=== PATIENT | male | born 1955 | race Caucasian/White ===

== ENCOUNTER 2023-01-17 09:01 | Inpatient (IN) | payer OTHER, MEDICAID ==
[~2023-01-17] VITALS: Ht 175.3 cm; Wt 99.2 kg
[~2023-01-17 09:01] MED LIST: ASPI-394 PO; ATOR20TA PO; DIGO0.1262 PO; DILT120C64 PO; MAGN250T8 PO; METO25TA5 PO; MULTTAB99 PO; TAMS0.4C36 PO; WARF1TAB PO; ZOLP10TA PO
[2023-01-17] MEDS ORDERED: ASPirin 81 mg TAB PO ONE (09:30)
[2023-01-17] MEDS ORDERED: MORPHINE SULFATE 4 MG/ML SYR/VIAL IV ONE (09:30)
[2023-01-17] MEDS ORDERED: ONDANSETRON HCL 4 MG/2 ML VIAL IV ONE (09:30)
[2023-01-17 09:38] LABS: Basophils # (auto) 0.1 10 ^3/uL (0-0.2); Basophils % (auto) 0.5 % (0.0-2.0); Eosinophils # (auto) 0.2 10 ^3/uL (0-0.8); Eosinophils % (auto) 2.3 % (0.0-7.0); Hematocrit 43.4 % (41.0-53.0); Hemoglobin 14.5 g/dL (13.5-17.5); Lymphocytes # (auto) 2.1 10 ^3/uL (0.4-5.4); Lymphocytes % (auto) 19.9 % (10.0-50.0); Mean Corpuscular Hemoglobin 32.2 pg (28.0-32.0); Mean Corpuscular Hgb Conc. 33.4 g/dL (32.0-36.0); Mean Corpuscular Volume 96.4 fL (80.0-100.0); Monocytes # (auto) 0.9 10 ^3/uL (0-1.3); Monocytes % (auto) 8.6 % (0.0-12.0); Neutrophils # (auto) 7.3 10 ^3/uL (1.6-8.6); Neutrophils % (auto) 68.7 % (37.0-80.0); Nucleated Red Blood Cells % 0.1 %; Red Cell Distribution Width 14.7 % (11.8-14.3); White Blood Cell 10.6 10^3/uL (4.4-10.8)
[2023-01-17 09:52] LABS: INR 1.06 (0.9-1.15); Partial Thromboplastin Time 29.4 SEC (24.5-34.5); Prothrombin Time 11.1 sec (9.3-11.8)
[2023-01-17 09:59] LABS: Alanine Aminotransferase 21 U/L (7-40); Albumin 4.4 g/dL (3.2-4.8); Alkaline Phosphatase 67 U/L (46-116); Anion Gap 6 (5-15); Aspartate Aminotransferase 20 U/L (13-40); BUN/Creatinine Ratio 27.3 (10.0-20.0); Blood Urea Nitrogen 24 mg/dL (9-23); Calcium 9.7 mg/dL (8.5-10.1); Carbon Dioxide 30 mmol/L (20-30); Chloride 103 mmol/L (98-107); Glucose 113 mg/dL (74-106); Potassium 3.8 mmol/L (3.5-5.1); Sodium 139 mmol/L (136-145); Total Protein 6.4 g/dL (5.7-8.2)
[2023-01-17 10:16] VITALS: PULSE 82; RESP 15; O2SAT 95
[2023-01-17] MEDS ORDERED: NITROGLYCERIN 0.4 MG SL TAB SL PRN (12:45)
[2023-01-17] MEDS ORDERED: ONDANSETRON HCL 4 MG/2 ML VIAL IV PRN (12:45)
[2023-01-17] MEDS ORDERED: DOCUSATE SOD 100 MG CAP PO PRN (12:45)
[2023-01-17] MEDS ORDERED: MORPHINE SULFATE INJ 2 MG/ml SYRG IV PRN (12:45)
[2023-01-17 13:20] LABS: Magnesium 1.8 mg/dL (1.6-2.6)
[2023-01-17] MEDS ORDERED: NITR0.4S29 SL (13:25)
[2023-01-17] MEDS ORDERED: FURO40TA4 PO (13:25)
[2023-01-17] MEDS ORDERED: FINA5TAB4 PO (13:25)
[2023-01-17] MEDS ORDERED: APIX5TAB PO (13:25)
[2023-01-17] MEDS ORDERED: ALBU2TAB11 PO (13:25)
[2023-01-17] MEDS ORDERED: CLON0.1T PO (13:25)
[2023-01-17] MEDS ORDERED: LISI40TA16 PO (13:25)
[2023-01-17] MEDS ORDERED: ALL100T PO (13:25)
[2023-01-17] MEDS ORDERED: PANT40TA2 PO (13:25)
[2023-01-17] MEDS ORDERED: cloNIDine HCL 0.1 MG TAB PO SCH (14:45)
[2023-01-17] MEDS ORDERED: NITROGLYCERIN 0.4 MG SL TAB SL SCH (14:45)
[2023-01-17] MEDS: MORPHINE SULFATE INJ 2 MG/ml SYRG IV PRN ×2 (14:50→22:22)
[2023-01-17 15:33] VITALS: BP 135/92; PULSE 82; RESP 16; TEMP 97.6; O2SAT 95
[2023-01-17 19:35] VITALS: O2SAT 96
[2023-01-17 20:13] LABS: Urine Bacteria NONE SEEN /hpf (None Seen); Urine Blood Negative /uL (Negative); Urine Clarity Clear (Clear); Urine Color Yellow (Yellow); Urine Protein, UAD Negative (Negative); Urine Specific Gravity 1.019 (1.001-1.035); Urine Urobilinogen Normal (Negative); Urine WBC 1 /hpf (0 - 3); Urine pH 5.5 (5.0-8.0)
[2023-01-17 22:00] VITALS: BP 130/90; PULSE 95; RESP 18; TEMP 97.6; O2SAT 96
[2023-01-17] MEDS: APIXABAN 5 MG TAB PO SCH (22:21)
[2023-01-17 22:41] VITALS: PULSE 95; RESP 18; O2SAT 95
[2023-01-17] MEDS: METOPROLOL TARTRATE 25 MG TAB PO SCH (23:18)
[2023-01-18] VITALS (12 sets, daily range): BP systolic 135–157; BP diastolic 88–100; PULSE 67–111; RESP 16–19; TEMP 97.5–98; O2SAT 90–100
[2023-01-18] MEDS: HYDROcodone-ACET 5/325MG TAB PO PRN ×4 (00:19→18:45)
[2023-01-18] MEDS: ALBUTEROL SULF 2.5 MG/0.5ML(0.5%) NEB SOLN NEB PRN ×2 (00:25→18:02)
[2023-01-18] MEDS: IPRATROPIUM BROM 0.5 MG/2.5ML INH SOL NEB PRN ×2 (00:26→18:02)
[2023-01-18] MEDS: MORPHINE SULFATE INJ 2 MG/ml SYRG IV PRN ×5 (02:43→21:26)
[2023-01-18 05:53] LABS: Basophils # (auto) 0.1 10 ^3/uL (0-0.2); Basophils % (auto) 0.8 % (0.0-2.0); Eosinophils # (auto) 0.2 10 ^3/uL (0-0.8); Eosinophils % (auto) 2.7 % (0.0-7.0); Hematocrit 39.7 % (41.0-53.0); Hemoglobin 13.3 g/dL (13.5-17.5); Lymphocytes # (auto) 1.5 10 ^3/uL (0.4-5.4); Lymphocytes % (auto) 19.8 % (10.0-50.0); Mean Corpuscular Hemoglobin 32.6 pg (28.0-32.0); Mean Corpuscular Hgb Conc. 33.6 g/dL (32.0-36.0); Mean Corpuscular Volume 96.9 fL (80.0-100.0); Monocytes # (auto) 0.6 10 ^3/uL (0-1.3); Monocytes % (auto) 8.5 % (0.0-12.0); Neutrophils % (auto) 68.2 % (37.0-80.0); Nucleated Red Blood Cells % 0.1 %; Red Blood Cells 4.09 10^6/uL (4.5-5.90); Red Cell Distribution Width 14.6 % (11.8-14.3); White Blood Cell 7.3 10^3/uL (4.4-10.8)
[2023-01-18 06:07] LABS: Alanine Aminotransferase 17 U/L (7-40); Alkaline Phosphatase 57 U/L (46-116); Anion Gap 5 (5-15); Aspartate Aminotransferase 19 U/L (13-40); BUN/Creatinine Ratio 16.1 (10.0-20.0); Bilirubin, Total 0.9 mg/dL (0.2-1.0); Blood Urea Nitrogen 14 mg/dL (9-23); Calcium 9.2 mg/dL (8.5-10.1); Carbon Dioxide 31 mmol/L (20-30); Chloride 104 mmol/L (98-107); Cholesterol 134 mg/dL (< 200); Glucose 100 mg/dL (74-106); HDL Cholesterol 28 mg/dL (40-59); LDL Cholesterol 64 mg/dL (< 100); Potassium 3.8 mmol/L (3.5-5.1); Sodium 140 mmol/L (136-145); Total Protein 6.1 g/dL (5.7-8.2); Triglycerides 288 mg/dL (< 150)
[2023-01-18] MEDS: METOPROLOL TARTRATE 25 MG TAB PO SCH ×2 (09:20→22:30)
[2023-01-18] MEDS: DIGOXIN 0.125 MG TAB PO SCH (09:20)
[2023-01-18] MEDS: PANTOPRAZOLE 40 MG TAB PO SCH (09:22)
[2023-01-18] MEDS: FINASTERIDE 5 MG TAB PO SCH (09:23)
[2023-01-18] MEDS: ATORVASTATIN 20 MG TAB PO SCH (09:23)
[2023-01-18] MEDS: ALLOPURINOL 100 MG TAB PO SCH (09:23)
[2023-01-18] MEDS: APIXABAN 5 MG TAB PO SCH ×2 (09:23→22:30)
[2023-01-18] MEDS ORDERED: PATIENTS OWN MEDICATION (Lisinopril 40 MG) PO SCH (10:00)
[2023-01-18] MEDS ORDERED: ADENOSINE 85 MG in GIVE UN-DILUTED 0 ML IV ONE (10:15)
[2023-01-18] MEDS ORDERED: PRED10TA PO (11:27)
[2023-01-18] MEDS ORDERED: AMLO1TAB22 PO ×2 (11:27→17:05)
[2023-01-18] MEDS ORDERED: SERT-206 PO (11:27)
[2023-01-18] MEDS: FUROSEMIDE 40 MG TAB PO SCH (12:41)
[2023-01-18] MEDS ORDERED: DIGO125T11 PO (17:05)
[2023-01-18] MEDS ORDERED: ASCO500T11 PO (17:05)
[2023-01-18] MEDS ORDERED: CLON0.1T PO (17:05)
[2023-01-18] MEDS ORDERED: ALLO100T PO (17:05)
[2023-01-18] MEDS ORDERED: APIX5TAB PO (17:05)
[2023-01-18] MEDS ORDERED: NITR0.4S29 SL (17:05)
[2023-01-18] MEDS ORDERED: DIPH25CA66 PO (17:05)
[2023-01-18] MEDS ORDERED: ASPI-543 PO (17:05)
[2023-01-18] MEDS ORDERED: SERT-375 PO (17:05)
[2023-01-18] MEDS ORDERED: ACET-6 PO (17:05)
[2023-01-18] MEDS ORDERED: MULT-1018 PO (17:05)
[2023-01-18] MEDS ORDERED: PANT40TA2 PO (17:05)
[2023-01-18] MEDS ORDERED: ATOR20TA50 PO (17:05)
[2023-01-18] MEDS ORDERED: LISI40TA16 PO (17:05)
[2023-01-18] MEDS ORDERED: FINA5TAB4 PO (17:05)
[2023-01-18] MEDS ORDERED: FURO40TA4 PO (17:05)
[2023-01-18] MEDS ORDERED: METO-158 PO (17:05)
[2023-01-19] VITALS (22 sets, daily range): BP systolic 123–155; BP diastolic 63–100; PULSE 84–115; RESP 16–22; TEMP 97.6–98.6; O2SAT 93–100
[2023-01-19] MEDS: IPRATROPIUM BROM 0.5 MG/2.5ML INH SOL NEB PRN ×5 (00:32→20:32)
[2023-01-19] MEDS: ALBUTEROL SULF 2.5 MG/0.5ML(0.5%) NEB SOLN NEB PRN ×5 (00:32→20:32)
[2023-01-19] MEDS: MORPHINE SULFATE INJ 2 MG/ml SYRG IV PRN ×4 (02:33→20:30)
[2023-01-19] MEDS ORDERED: ASPirin 81 mg TAB PO ONE (10:30)
[2023-01-19] MEDS: ATORVASTATIN 20 MG TAB PO SCH (10:57)
[2023-01-19] MEDS: ALLOPURINOL 100 MG TAB PO SCH (10:58)
[2023-01-19] MEDS: ACETAMINOPHEN 325 MG TAB PO PRN (10:58)
[2023-01-19] MEDS: APIXABAN 5 MG TAB PO SCH ×2 (10:58→21:53)
[2023-01-19] MEDS: FINASTERIDE 5 MG TAB PO SCH (10:59)
[2023-01-19] MEDS: METOPROLOL TARTRATE 25 MG TAB PO SCH ×2 (10:59→21:53)
[2023-01-19] MEDS: PANTOPRAZOLE 40 MG TAB PO SCH (10:59)
[2023-01-19] MEDS: LISINOPRIL 20 MG TAB PO SCH (11:00)
[2023-01-19] MEDS: FUROSEMIDE 40 MG TAB PO SCH (11:00)
[2023-01-19] MEDS: DIGOXIN 0.125 MG TAB PO SCH (11:01)
[2023-01-19] MEDS: HYDROcodone-ACET 5/325MG TAB PO PRN (13:15)
[2023-01-20] VITALS (24 sets, daily range): BP systolic 114–187; BP diastolic 61–140; PULSE 81–135; RESP 12–100; TEMP 97.2–98.1; O2SAT 90–100
[2023-01-20] MEDS: MORPHINE SULFATE INJ 2 MG/ml SYRG IV PRN ×2 (00:58→06:08)
[2023-01-20] MEDS: IPRATROPIUM BROM 0.5 MG/2.5ML INH SOL NEB PRN ×2 (03:17→11:40)
[2023-01-20] MEDS: ALBUTEROL SULF 2.5 MG/0.5ML(0.5%) NEB SOLN NEB PRN ×2 (03:17→11:40)
[2023-01-20 06:18] LABS: Basophils # (auto) 0.1 10 ^3/uL (0-0.2); Basophils % (auto) 0.7 % (0.0-2.0); Eosinophils # (auto) 0.2 10 ^3/uL (0-0.8); Eosinophils % (auto) 2.4 % (0.0-7.0); Hematocrit 44.8 % (41.0-53.0); Hemoglobin 14.6 g/dL (13.5-17.5); Lymphocytes # (auto) 1.3 10 ^3/uL (0.4-5.4); Lymphocytes % (auto) 16.3 % (10.0-50.0); Mean Corpuscular Hemoglobin 31.8 pg (28.0-32.0); Mean Corpuscular Hgb Conc. 32.7 g/dL (32.0-36.0); Mean Corpuscular Volume 97.2 fL (80.0-100.0); Monocytes # (auto) 0.8 10 ^3/uL (0-1.3); Monocytes % (auto) 9.4 % (0.0-12.0); Neutrophils # (auto) 5.8 10 ^3/uL (1.6-8.6); Neutrophils % (auto) 71.2 % (37.0-80.0); Red Cell Distribution Width 14.6 % (11.8-14.3); White Blood Cell 8.1 10^3/uL (4.4-10.8)
[2023-01-20 06:23] LABS: INR 1.05 (0.9-1.15); Partial Thromboplastin Time 31.3 SEC (24.5-34.5)
[2023-01-20 06:26] LABS: Alanine Aminotransferase 20 U/L (7-40); Albumin 4.5 g/dL (3.2-4.8); Alkaline Phosphatase 75 U/L (46-116); Anion Gap 4 (5-15); Aspartate Aminotransferase 23 U/L (13-40); BUN/Creatinine Ratio 12.2 (10.0-20.0); Blood Urea Nitrogen 10 mg/dL (9-23); Calcium 9.6 mg/dL (8.7-10.4); Carbon Dioxide 30 mmol/L (20-30); Chloride 106 mmol/L (98-107); Glucose 123 mg/dL (74-106); Potassium 3.6 mmol/L (3.5-5.1); Sodium 140 mmol/L (136-145)
[2023-01-20 06:27] LABS: Bilirubin, Total 0.8 mg/dL (0.2-1.0); Total Protein 6.8 g/dL (5.7-8.2)
[2023-01-20] MEDS ORDERED: IODIXANOL 320MG/ML 100ML BTL IV ONE ×2 (07:55→08:14)
[2023-01-20] MEDS ORDERED: LIDOCAINE 2%HCL (LOCAL ANESTH.) INJ 20ML MDV ONE (07:55)
[2023-01-20] MEDS ORDERED: HEPARIN SODIUM (PORCINE) 5000 UNITS/ML 1ML VIAL ONE (08:13)
[2023-01-20] MEDS ORDERED: VERAPAMIL 2.5MG/ML INJ 2ML VIAL IV ONE (08:13)
[2023-01-20] MEDS ORDERED: ANGIOMAX 250 MG VIAL IV ONE (08:13)
[2023-01-20] MEDS ORDERED: fentaNYL CITRATE 100 MCG/2 ML VL ONE (08:14)
[2023-01-20] MEDS ORDERED: MIDAZOLAM HCL 2MG/2ML 2ml VIAL (1mg/ml) ONE (08:14)
[2023-01-20] MEDS ORDERED: SODIUM CHL 0.9% 0 ML ONE (08:14)
[2023-01-20] MEDS ORDERED: METOPROLOL TARTRATE 1MG/1ML-5ML VIAL IV ONE (08:51)
[2023-01-20] MEDS ORDERED: LABETALOL HCL 5 MG/ML ML 20ML VIAL IV ONE (08:58)
[2023-01-20] MEDS ORDERED: ASPirin 81 mg TAB PO SCH (10:00)
[2023-01-20] MEDS ORDERED: LABETALOL HCL 5 MG/ML 4ML SYRINGE IV PRN (10:00)
[2023-01-20] MEDS ORDERED: LABETALOL HCL 5 MG/ML 4ML SYRINGE IV ONE (10:05)
[2023-01-20] MEDS: ACETAMINOPHEN 325 MG TAB PO PRN (10:44)
[2023-01-20] MEDS: ATORVASTATIN 20 MG TAB PO SCH (10:45)
[2023-01-20] MEDS: HYDROcodone-ACET 5/325MG TAB PO PRN (10:45)
[2023-01-20] MEDS: APIXABAN 5 MG TAB PO SCH (10:45)
[2023-01-20] MEDS: FINASTERIDE 5 MG TAB PO SCH (10:45)
[2023-01-20] MEDS: PANTOPRAZOLE 40 MG TAB PO SCH (10:45)
[2023-01-20] MEDS: ALLOPURINOL 100 MG TAB PO SCH (10:46)
[2023-01-20] MEDS: FUROSEMIDE 40 MG TAB PO SCH (10:46)
[2023-01-20] MEDS: LISINOPRIL 20 MG TAB PO SCH (10:47)
[2023-01-20] MEDS ORDERED: MULT-1018 PO (11:33)
[2023-01-20] MEDS ORDERED: HYDR-4798 PO (11:36)
== END 2023-01-20 15:36 | disposition home or self-care (01) | DRG 286 ==
LOC: ER 09:01 → TELE 12:44 → TELE-WESTW 21:58
PROVIDERS: ADMIT Nurse Practitioner Family; ATTEND Internal Medicine Geriatric Medicine
PROC: 4A023N7 Measurement of Cardiac Sampling and Pressure, Left Heart, Percutaneous Approach (ICD-10-PCS; principal; 2023-01-20)
PROC: B211YZZ Fluoroscopy of Multiple Coronary Arteries using Other Contrast (ICD-10-PCS; 2023-01-20)
PROC: B215YZZ Fluoroscopy of Left Heart using Other Contrast (ICD-10-PCS; 2023-01-20)
DX: I11.0 Hypertensive heart disease with heart failure (principal); I50.31 Acute diastolic (congestive) heart failure; I24.9 Acute ischemic heart disease, unspecified; J90 Pleural effusion, not elsewhere classified; R07.89 Other chest pain; M79.18 Myalgia, other site; I48.91 Unspecified atrial fibrillation; E66.9 Obesity, unspecified; K21.9 Gastro-esophageal reflux disease without esophagitis; M10.9 Gout, unspecified; F17.210 Nicotine dependence, cigarettes, uncomplicated; J43.9 Emphysema, unspecified; E78.2 Mixed hyperlipidemia; Z79.899 Other long term (current) drug therapy; Z79.01 Long term (current) use of anticoagulants; Z68.32 Body mass index [BMI] 32.0-32.9, adult; Z82.49 Family history of ischemic heart disease and other diseases of the circulatory system; Z82.3 Family history of stroke; I16.0 Hypertensive urgency
CPT/HCPCS: 36415; 71045; 78452; 80053; 80061; 80162; 81001; 83036; 83735; 83880; 84443; 84484; 85025; 85379; 85610; 85730; 86850; 86900; 86901; 87081; 93005; 93017; 93306; 93458; 94640; 96374; 96375; 96376; 99152; 99153; G0378; J0153; J2250; J2405; J3490; Q9967

== ENCOUNTER 2023-01-26 07:27 | Emergency (ER) | payer OTHER, MEDICAID ==
[~2023-01-26] VITALS: Ht 175.3 cm; Wt 101.8 kg
[~2023-01-26 07:27] MED LIST changes: +ACET-6 PO; +ALLO100T PO; +AMLO1TAB22 PO; +APIX5TAB PO; +ASCO500T11 PO; -ASPI-394 PO; +ASPI-543 PO; -ATOR20TA PO; +ATOR20TA50 PO; +CLON0.1T PO; -DIGO0.1262 PO; +DIGO125T11 PO; -DILT120C64 PO; +DIPH25CA66 PO; +FINA5TAB4 PO; +FURO40TA4 PO; +HYDR-4798 PO; +LISI40TA16 PO; -MAGN250T8 PO; +METO-158 PO; -METO25TA5 PO; +MULT-1018 PO; -MULTTAB99 PO; +NITR0.4S29 SL; +PANT40TA2 PO; +SERT-375 PO; -TAMS0.4C36 PO; -WARF1TAB PO; -ZOLP10TA PO
[2023-01-26 09:10] VITALS: TEMP 98.1
[2023-01-26 09:12] VITALS: PULSE 49; RESP 14; O2SAT 92
[2023-01-26 11:54] VITALS: BP 97/42; PULSE 54; RESP 14; O2SAT 93
== END 2023-01-26 12:55 | disposition home or self-care (01) ==
LOC: ER 07:27
DX: T46.5X1A Poisoning by other antihypertensive drugs, accidental (unintentional), initial encounter (principal); R42 Dizziness and giddiness; J44.9 Chronic obstructive pulmonary disease, unspecified; E78.5 Hyperlipidemia, unspecified; I10 Essential (primary) hypertension; F17.210 Nicotine dependence, cigarettes, uncomplicated; I48.91 Unspecified atrial fibrillation; F12.10 Cannabis abuse, uncomplicated; Y92.89 Other specified places as the place of occurrence of the external cause
CPT/HCPCS: 93005; 99291

== ENCOUNTER 2024-08-24 19:21 | Inpatient (IN) | payer OTHER, MEDICAID ==
[~2024-08-24] VITALS: Ht 175.3 cm; Wt 97.1 kg
--- NOTE | 2024-08-24 20:10 | ED.PDOC ---
History of Present Illness HPI Comments 68-year-old male who came to ER for low blood pressure. History of hypertension, COPD and AFib, status post pacemaker insertion. States about 4:30 p.m., noted that he was feeling dizzy and lightheaded, noted that his blood pressure was low (78/40 mmHg). Denies any acute chest pains or shortness of breath. Patient admits to have taken shot of vodka, and marijuana gummies earlier. Upon arrival in the ER blood pressure was 88/54 mm Hg Chief Complaint: Low Blood Pressure Time Seen by MD: 20:10 Primary Care Provider: JHONATAN Reviewed Notes: Nurses Notes Allergies: Coded Allergies: NO KNOWN ALLERGIES (Unverified , 11/27/12) Home Meds Active Scripts Hydrocodone-Acetaminophen (Hydrocodone Bitartrate/AC 10-325 mg) 1 Tab Tab, 1 TAB PO Q6HP PRN, #20 TAB Prov:NICOLLE PANDA MD 01/20/23 Multiple Vitamin (Multivitamins) Tab, 1 TAB PO DAILY, #30 TAB 5 Refills Prov:NICOLLE PANDA MD 01/20/23 Reported Medications Efltxbwdzli-Vgvkkqgojpsi-Aklih (Trelegy Ellipta 200-62.5-25 Mcg/INH) 1 Aer Aer, 1 AER IN DAILY, AER 08/25/24 Prednisone (Prednisone) 5 Mg Tab, 5 MG PO DAILY, TAB 08/25/24 Lisinopril (Lisinopril) 20 Mg Tab, 20 MG PO DAILY for 30 Days, MG 08/25/24 Hydralazine Hcl (Hydralazine Hcl) 25 Mg Tab, 25 MG PO for 30 Days, MG 08/25/24 Apixaban Base (ELIQUIS) 5 Mg Tab, 5 MG PO BID, TAB 08/25/24 Albuterol Sulfate (Albuterol Sulfate) 2 Mg Tab, 90 MCG IN Q6HP PRN for SHORTNESS OF BREATH, MG 08/25/24 Acetaminophen (Acetaminophen Extra Stren) 500 Mg Tab, 500 MG PO QIDPRN, TAB 01/18/23 Ascorbic Acid (VITAMIN C TABLET) 500 Mg Tb, 2 TAB PO BID, #60 TAB 01/18/23 Diphenhydramine Hcl (Benadryl Allergy) 25 Mg Cap, 25 MG PO DAILY, CAP 01/18/23 Furosemide (Furosemide) 40 Mg Tab, 40 MG PO DAILY 01/18/23 Sertraline HCl (Sertraline Hydrochloride) 25 Mg Tab, 25 MG PO DAILY, TAB 01/18/23 Pantoprazole Sodium Sesquihydr (Protonix) 40 Mg Tab, 40 MG PO DAILY, #30 TAB 01/18/23 Nitroglycerin (NTROSTAT SUBLINGUAL) 0.4 Mg Sl, 0.4 MG SL PRN, TAB *MAY REPEAT EVERY 5 MINUTES X 3 TOTAL IF NO RELIEF, INITIATE ANALGESIC THERAPY. NOTIFY PHYSICIAN *Do not crush. 01/18/23 Metoprolol Tartrate (Metoprolol Tartrate) 50 Mg Tab, 50 MG PO BID, TAB 01/18/23 Lisinopril (Lisinopril) 40 Mg Tab, 40 MG PO DAILY for 30 Days, MG 01/18/23 Finasteride (Finasteride) 5 Mg Tab, 5 MG PO DAILY, MG 01/18/23 Digoxin (Digox) 125 Mcg Tab, 125 MCG PO DAILY, TAB 01/18/23 Clonidine Hydrochloride (Clonidine Hcl) 0.1 Mg Tab, 0.1 MG PO TID, TAB 01/18/23 Atorvastatin Calcium (ATORVASTATIN CALCIUM) 20 Mg Tab, 1 TAB PO DAILY, #30 TAB 5 Refills 01/18/23 Aspirin (Aspir-Low) 81 Mg Tab, 81 MG PO DAILYPRN, MG 01/18/23 Apixaban Base (ELIQUIS) 5 Mg Tab, 5 MG PO BID, TAB 01/18/23 Amlodipine Besylate (Amlodipine Besylate) 5 Mg Tab, 5 MG PO DAILY, MG 01/18/23 Allopurinol (Allopurinol) 100 Mg Tab, 100 MG PO DAILY, TAB 01/18/23 Information Source: Patient Mode of Arrival: Ambulatory Severity: Moderate Timing: Hours Duration: Since onset Review of Systems REVIEW OF SYSTEMS: No fever, no chills, or fatigue HEENT: No sore throat, no earache, no congestion, no neck pain. Cardiac: No chest pain. No palpitations. Lungs: No shortness of breath, no cough. GI: No nausea, no vomiting, no diarrhea, no constipation, no abdominal pain : No dysuria, frequency, or urgency. No hematuria. Musculoskeletal: No joint pain , no joint swelling, no extremity edema. Skin: No rash, no itching. Neuro: No headache, (+) dizziness, no weakness Vital Signs Vital Signs Date Time Temp Pulse Resp B/P (MAP) Pulse Ox O2 Delivery O2 Flow Rate FiO2 08/24/24 23:07 97.3 63 18 70/45 (53) 96 97.3 08/24/24 23:00 Room Air* 0 21 Physical Exam General: Awake, alert and oriented. No acute distress. Skin: Skin in warm, dry and intact. Appropriate color for ethnicity. Nailbeds pink with no cyanosis. HEENT: The head is normocephalic and atraumatic. Conjunctivae are clear without exudates or hemorrhage. Sclera is non-icteric. EOM are intact. No signs of nystagmus. Eyelids are normal in appearance without swelling or lesions. Oral mucosa is pink and moist Neck: The neck is supple with normal range of motion. No JVD. Cardiac: Heart rate and rhythm are normal. No murmurs, gallops, or rubs are auscultated. Respiratory: No signs of respiratory distress. Lung sounds are clear in all lobes bilaterally without rales, rhonchi, or wheezes. Abdominal: Abdomen is soft, non-tender without distention. Bowel sounds are present and normoactive in all four quadrants. Extremities: Upper and lower extremities are atraumatic in appearance without deformity or edema. Neurological: The patient is awake, alert and oriented to person, place, and time with normal speech. Speech is clear. There is no facial asymmetry. Psychiatric: Appropriate mood and affect. Good judgement and insight. No visual or auditory hallucinations. Past Medical History PAST MEDICAL HISTORY: AFIB, COPD, High Lipids, HTN Surgical History: Pacemaker Family History Family History: No family hx of HTN, Family hx of heart rakesh Social History Smoker: Cigarettes, Less Than 1 Pack/Day Alcohol: Occasionally Drugs: Marijuana Lives In: Home Was a procedure done? Was a procedure done?: No EKG EKG : Pulse Rate (adult): 60 Cardiac Rhythm: Paced Differential Dx Considerations may include: Anemia, electrolyte imbalance, hypotension X-Ray, Labs, Meds, VS Vital Signs Date Time Temp Pulse Resp B/P (MAP) Pulse Ox O2 Delivery O2 Flow Rate FiO2 08/24/24 23:07 97.3 63 18 70/45 (53) 96 97.3 08/24/24 23:00 99 Room Air* 0 21 08/24/24 22:53 60 08/24/24 20:10 60 08/24/24 19:33 97.7 72 16 112/68 (83) 97 97.7 Lab Test 08/24/24 21:10 08/24/24 20:10 08/24/24 20:00 08/24/24 19:54 Range/Units Troponin I High Sensitivity 16 18 </=54 ng/L White Blood Count 9.6 4.4-10.8 10^3/uL Red Blood Count 4.22 L 4.5-5.90 10^6/uL Hemoglobin 13.5 13.5-17.5 g/dL Hematocrit 39.9 L 41.0-53.0 % Mean Corpuscular Volume 94.6 80.0-100.0 fL Mean Corpuscular Hemoglobin 31.9 28.0-32.0 pg Mean Corpuscular Hemoglobin Concent 33.7 32.0-36.0 g/dL Red Cell Distribution Width 14.7 H 11.8-14.3 % Platelet Count 180 140-450 10^3/uL Mean Platelet Volume 7.9 6.9-10.8 fL Neutrophils (%) (Auto) 58.4 37.0-80.0 % Lymphocytes (%) (Auto) 26.2 10.0-50.0 % Monocytes (%) (Auto) 11.0 0.0-12.0 % Eosinophils (%) (Auto) 3.5 0.0-7.0 % Basophils (%) (Auto) 0.9 0.0-2.0 % Neutrophils # (Auto) 5.6 1.6-8.6 10 ^3/uL Lymphocytes # (Auto) 2.5 0.4-5.4 10 ^3/uL Monocytes # (Auto) 1.1 0-1.3 10 ^3/uL Eosinophils # (Auto) 0.3 0-0.8 10 ^3/uL Basophils # (Auto) 0.1 0-0.2 10 ^3/uL Nucleated Red Blood Cells 0.1 % Sodium Level 141 136-145 mmol/L Potassium Level 3.7 3.5-5.1 mmol/L Chloride Level 111 H 98-107 mmol/L Carbon Dioxide Level 19 L 20-31 mmol/L Anion Gap 11 5-15 Blood Urea Nitrogen 35 H 9-23 mg/dL Creatinine 2.11 H 0.700-1.30 mg/dL Glomerular Filtration Rate Calc 33 >90 mL/min BUN/Creatinine Ratio 16.6 10.0-20.0 Serum Glucose 92 74-106 mg/dL Lactic Acid Level 1.6 0.4-2.0 mmol/L Calcium Level 9.9 8.7-10.4 mg/dL Magnesium Level 1.8 1.6-2.6 mg/dL Total Bilirubin 0.4 0.2-1.0 mg/dL Aspartate Amino Transferase (AST) 21 13-40 U/L Alanine Aminotransferase (ALT) 21 7-40 U/L Alkaline Phosphatase 91 46-116 U/L C-Reactive Protein High Sensitivity 0.19 <1.0 mg/dL B-Type Natriuretic Peptide 100.49 0-100 pg/mL Total Protein 6.4 5.7-8.2 g/dL Albumin 4.3 3.2-4.8 g/dL Plasma/Serum Blood Alcohol 123.0 H <10 mg/dL POC Glucose 106 70-106 mg/dl Microbiology Date/Time Source Procedure Growth Status 08/24/24 20:10 Blood Blood Culture - Preliminary NO GROWTH AFTER 48 HOURS OF INCUBATION. Resulted 08/24/24 20:00 Blood Blood Culture - Preliminary NO GROWTH AFTER 48 HOURS OF INCUBATION. Resulted CHEST RADIOGRAPH Indication: dizzy Technique: Single frontal view of the chest was obtained COMPARISON: XY CHEST PORTABLE on DOS: 01/17/23 FINDINGS: CP angles have been cut off on this radiograph. Lines and Tubes: Single-lead pacemaker noted overlying left chest wall. Lungs: No abnormality demonstrated. Pleura: No significant pleural effusion. No pneumothorax. Cardiomediastinal contours: Unremarkable IMPRESSION: No acute disease. Time of 1ST Reevaluation: 20:06 Reevaluation 1ST: Unchanged Patient Education/Counseling: Diagnosis, Treatment Family Education/Counseling: No Family Present Departure 1 Departure Time of Disposition: 22:53 Impression: Primary Impression: Hypotension Additional Impression: GEMMA (acute kidney injury) Disposition: ADMITTED INPATIENT Condition: Stable Critical Care Note Critical Care Time?: No Stability Stability form required: No Heart Score Heart Score: Heart Score Response (Comments) Value History Moderate Suspicious [address]-Deviation 2 Age >65 2 Risk Factors >3 or Hx ASHD 2 Troponin Normal limit 0 Total 7 I personally scribed for MINTAH,CHAILLE A MD ([email or web address]) on 08/24/24 at 20:10. Electronically submitted by Arthur Ambriz ([email or web address]). I personally scribed for ISSA KRAFT MD ([email or web address]) on 08/24/24 at 21:00. Electronically submitted by Arthur Ambriz ([email or web address]). ISSA KRAFT MD August 24, 2024 20:10
[2024-08-24 20:36] LABS: Basophils # (auto) 0.1 10 ^3/uL (0-0.2); Basophils % (auto) 0.9 % (0.0-2.0); Eosinophils # (auto) 0.3 10 ^3/uL (0-0.8); Eosinophils % (auto) 3.5 % (0.0-7.0); Hematocrit 39.9 % (41.0-53.0); Hemoglobin 13.5 g/dL (13.5-17.5); Lymphocytes # (auto) 2.5 10 ^3/uL (0.4-5.4); Lymphocytes % (auto) 26.2 % (10.0-50.0); Mean Corpuscular Hemoglobin 31.9 pg (28.0-32.0); Mean Corpuscular Hgb Conc. 33.7 g/dL (32.0-36.0); Mean Corpuscular Volume 94.6 fL (80.0-100.0); Monocytes # (auto) 1.1 10 ^3/uL (0-1.3); Neutrophils # (auto) 5.6 10 ^3/uL (1.6-8.6); Neutrophils % (auto) 58.4 % (37.0-80.0); Nucleated Red Blood Cells % 0.1 %; Platelet Count (auto) 180 10^3/uL (140-450); Red Blood Cells 4.22 10^6/uL (4.5-5.90); Red Cell Distribution Width 14.7 % (11.8-14.3); White Blood Cell 9.6 10^3/uL (4.4-10.8)
[2024-08-24 20:41] LABS: Alanine Aminotransferase 21 U/L (7-40); Albumin 4.3 g/dL (3.2-4.8); Alkaline Phosphatase 91 U/L (46-116); Anion Gap 11 (5-15); Aspartate Aminotransferase 21 U/L (13-40); BUN/Creatinine Ratio 16.6 (10.0-20.0); CRP High Sensitivity 0.19 mg/dL (<1.0); Calcium 9.9 mg/dL (8.7-10.4); Glucose 92 mg/dL (74-106); Magnesium 1.8 mg/dL (1.6-2.6); Potassium 3.7 mmol/L (3.5-5.1); Sodium 141 mmol/L (136-145); Total Protein 6.4 g/dL (5.7-8.2)
[2024-08-24 20:42] LABS: Bilirubin, Total 0.4 mg/dL (0.2-1.0)
--- NOTE | 2024-08-24 20:49 | DVH ---
CHEST RADIOGRAPH Indication: dizzy Technique: Single frontal view of the chest was obtained COMPARISON: XY CHEST PORTABLE on DOS: 01/17/23 FINDINGS: CP angles have been cut off on this radiograph. Lines and Tubes: Single-lead pacemaker noted overlying left chest wall. Lungs: No abnormality demonstrated. Pleura: No significant pleural effusion. No pneumothorax. Cardiomediastinal contours: Unremarkable IMPRESSION: No acute disease.
[2024-08-24 20:50] LABS: Blood Urea Nitrogen 35 mg/dL (9-23); Carbon Dioxide 19 mmol/L (20-31); Chloride 111 mmol/L (98-107)
[2024-08-24] MEDS: SODIUM CHLORIDE 0.9% 500 ML IV ONE ×2 (21:00→23:14)
[2024-08-24 23:00] VITALS: O2SAT 99
[2024-08-24] MEDS: SODIUM CHLORIDE 0.9% 1,000 ML IV ONE (23:14)
--- NOTE | 2024-08-24 23:42 | DVHHP2 ---
History of Present Illness Reason for Visit: Hypotension History of Present Illness The patient is a 68-year-old male with past medical history of COPD, AFib, hypertension, and hyperlipidemia who presented to [facility] ED with complaint of hypotension. Patient reports that he was feeling dizzy and lightheaded, noted that his blood pressure was low (78/40 mmHg). Patient admits to have taken shot of vodka, and marijuana gummies earlier. Patient was seen and evaluated in the ED below blood pressure of 88/54 mm Hg, heart rate 64, temperature 97.3� F, O2 saturation 96% on room air. Laboratory data shows WBC 9.6, platelets 180, sodium 141, potassium 3.7, BUN 35, creatinine 2.11, glucose 92, troponin 16, BNP 100.49, serum alcohol 123.0. Please see medication orders section in the computer. On my assessment, patient denied chest pain, no headache, no dizziness, no shortness of breath, no diaphoresis, no nausea, no vomiting, no fever, no chills. Patient was admitted for further evaluation and medical management. Past Medical History AFIB, COPD, High Lipids, HTN Past Surgical History Pacemaker Family History Reviewed, noncontributory to the management of this case. Past Social History The patient lives at home, smokes cigarettes less than 1 pack per day, drinks alcohol heavily, uses marijuana. Review of Systems Constitutional: Yes: Weakness; No: Fever, Chills, Sweats, Malaise, Other Eyes: No: Pain, Vision change, Conjunctivae inflammation, Eyelid inflammation, Other, Redness ENT: No: Ear pain, Ear discharge, Nose pain, Nose discharge, Nose congestion, Mouth pain, Mouth swelling, Throat pain, Throat swelling, Other Respiratory: No: Cough, Dry, Shortness of breath, SOB with excertion, Wheezing, Hemoptysis, Pleuritic Pain, Sputum, Wheezing, Other Cardiovascular: No: Chest Pain, Palpitations, Orthopnea, Paroxysmal Noc. Dyspnea, Edema, Lt Headedness, Other Gastrointestinal: No: Nausea, Vomiting, Abdominal Pain, Diarrhea, Constipation, Melena, Hematochezia, Other Genitourinary: No Dysuria, No Frequency, No Incontinence, No Hematuria, No Retention, No Other Musculoskeletal: No: other, neck pain, shoulder pain, arm pain, back pain, hand pain, leg pain, foot pain Skin: No: Rash, Lesions, Jaundice, Bruising, Other Neurological: No: Weakness, Numbness, Incoordination, Change in speech, Confusion, Seizures, Other Allergies: Coded Allergies: NO KNOWN ALLERGIES (Unverified , 11/27/12) Exam Vital Signs Vital Signs Date Time Temp Pulse Resp B/P (MAP) Pulse Ox O2 Delivery O2 Flow Rate FiO2 08/24/24 23:07 97.3 63 18 70/45 (53) 96 97.3 General Appearance: Alert, Oriented X3, Cooperative, No acute distress HEENT: Atraumatic, PERRLA, EOMI, Mucous membr. moist/pink Respiratory: Clear to auscultation, Normal air movement Cardiovascular: Regular rate, Normal S1, Normal S2, No murmurs Abdominal: Normal bowel sounds, Soft, No tenderness, No hepatospenomegaly, No masses Extremities: No clubbing, No cyanosis, No edema, Normal pulses, No tenderness/swelling Skin: No rashes, No breakdown, No significant lesion Neuro: Normal speech, Normal tone, Sensation intact, Cranial nerves 3-12 NL, Reflexes 2+, Other (Generalized weakness) Psych/Mental Status: Mental status NL, Mood NL Labs/Xrays Labs Test 08/24/24 21:10 08/24/24 20:10 08/24/24 19:54 Range/Units Troponin I High Sensitivity 16 </=54 ng/L White Blood Count 9.6 4.4-10.8 10^3/uL Red Blood Count 4.22 L 4.5-5.90 10^6/uL Hemoglobin 13.5 13.5-17.5 g/dL Hematocrit 39.9 L 41.0-53.0 % Mean Corpuscular Volume 94.6 80.0-100.0 fL Mean Corpuscular Hemoglobin 31.9 28.0-32.0 pg Mean Corpuscular Hemoglobin Concent 33.7 32.0-36.0 g/dL Red Cell Distribution Width 14.7 H 11.8-14.3 % Platelet Count 180 140-450 10^3/uL Mean Platelet Volume 7.9 6.9-10.8 fL Neutrophils (%) (Auto) 58.4 37.0-80.0 % Lymphocytes (%) (Auto) 26.2 10.0-50.0 % Monocytes (%) (Auto) 11.0 0.0-12.0 % Eosinophils (%) (Auto) 3.5 0.0-7.0 % Basophils (%) (Auto) 0.9 0.0-2.0 % Neutrophils # (Auto) 5.6 1.6-8.6 10 ^3/uL Lymphocytes # (Auto) 2.5 0.4-5.4 10 ^3/uL Monocytes # (Auto) 1.1 0-1.3 10 ^3/uL Eosinophils # (Auto) 0.3 0-0.8 10 ^3/uL Basophils # (Auto) 0.1 0-0.2 10 ^3/uL Nucleated Red Blood Cells 0.1 % Sodium Level 141 136-145 mmol/L Potassium Level 3.7 3.5-5.1 mmol/L Chloride Level 111 H 98-107 mmol/L Carbon Dioxide Level 19 L 20-31 mmol/L Anion Gap 11 5-15 Blood Urea Nitrogen 35 H 9-23 mg/dL Creatinine 2.11 H 0.700-1.30 mg/dL Glomerular Filtration Rate Calc 33 >90 mL/min BUN/Creatinine Ratio 16.6 10.0-20.0 Serum Glucose 92 74-106 mg/dL Lactic Acid Level 1.6 0.4-2.0 mmol/L Calcium Level 9.9 8.7-10.4 mg/dL Magnesium Level 1.8 1.6-2.6 mg/dL Total Bilirubin 0.4 0.2-1.0 mg/dL Aspartate Amino Transferase (AST) 21 13-40 U/L Alanine Aminotransferase (ALT) 21 7-40 U/L Alkaline Phosphatase 91 46-116 U/L C-Reactive Protein High Sensitivity 0.19 <1.0 mg/dL B-Type Natriuretic Peptide 100.49 0-100 pg/mL Total Protein 6.4 5.7-8.2 g/dL Albumin 4.3 3.2-4.8 g/dL Plasma/Serum Blood Alcohol 123.0 H <10 mg/dL POC Glucose 106 70-106 mg/dl PATIENT: ELENITA KUO ACCT: [id number] UNIT: [id number] : 1955 LOC: ER ROOM / BED: / AGE / SEX: 68 / M ADM STATUS: REG ER SERVICE 99 ORDERING PHYSICIAN: ISSA KRAFT MD PROCEDURE(s): CXR1 - CHEST XRAY 1 VIEW REASON: dizzy ORDER NUMBER(s): [id number], ACCESSION NUMBER(s): [id number] CHEST RADIOGRAPH Indication: dizzy Technique: Single frontal view of the chest was obtained COMPARISON: XY CHEST PORTABLE on DOS: 01/17/23 FINDINGS: CP angles have been cut off on this radiograph. Lines and Tubes: Single-lead pacemaker noted overlying left chest wall. Lungs: No abnormality demonstrated. Pleura: No significant pleural effusion. No pneumothorax. Cardiomediastinal contours: Unremarkable IMPRESSION: No acute disease. Assessment/Plan Assessment/Plan Hypotension Alcohol intoxication GEMMA (acute kidney injury) Hypotension, unspecified Plan 1. Admit to telemetry unit 2. Breathing treatment 3. Pain control management 4. Management of fluids and electrolytes 5. Consultation for Nephrology 6. Diagnostic tests chest x-ray 7. DVT prophylaxis on SCDs 8. Repeat labs CBC, CMP in a.m. 9. Continue with current medical management 10. Treatment plan discussed with patient and RN. Patient verbalized understanding. Plan discussed with: Patient, Other (RN) My Orders Orders - MARY KEEN DNP Procedure Category Date Status Time * Cardiology Consult CONS 08/24/24 Verified 23:32 Atorvastatin (Lipitor) PHA 08/25/24 Verified 22:00 *Dr. Franki Edwards CONS 08/24/24 Verified -[place] 23:32 Thiamine Inj PHA 08/24/24 Verified 23:45 Thiamine Inj PHA 08/25/24 Verified 10:00 Folic Acid Ivpb PHA 08/25/24 Verified 10:00 Folic Acid Ivpb PHA 08/24/24 Verified 23:45 Apixaban (Eliquis) PHA 08/25/24 Verified 10:00 Admit ADMIT 08/24/24 Verified 23:32 Allergies ROSELYN 08/24/24 Verified 23:32 Code Status CODE 08/24/24 Verified 23:32 Sodium Chloride Lock PHA 08/25/24 Verified (Saline Lock Ns) 06:00 Oxygen Per Hour RT 08/24/24 Verified 23:32 Hydrocodone-Acet PHA 08/24/24 Verified 5/325mg Tab ([place] 23:45 Ondansetron Hcl PHA 08/24/24 Verified (Zofran) 23:45 Docusate Sodium PHA 08/24/24 Verified Capsule (Colace 23:45 Multiple Vitamin PHA 08/25/24 Verified Tablet (Mvi Tab) 10:00 Fall Risk Precautions ROSELYN 08/24/[address] 23:32 Complete Blood Count LAB 08/25/24 Verified 04:00 Comprehensive LAB 08/25/24 Verified Metabolic Panel 04:00 Cardiac DIET 08/25/24 Verified Diet-2gna,Lofat,Lochol Breakfast Condition: Serious ROSELYN 08/24/24 Verified 23:32 Acetaminophen Tablet PHA 08/24/24 Verified (Tylenol Tablet) 23:45 Maintain Bed Rest ROSELYN 08/24/24 Verified 23:32 Sequential ROSELYN 08/24/24 Verified Compression Device Nitroglycerin PHA 08/24/24 Verified Sublingual (Ntrostat 23:45 Morphine Sulfate PHA 08/24/24 Verified Injection 23:45 Stat Ekg For Chest ROSELYN 08/24/24 Verified Pain 23:32 Notify Md Of Changes [facility] 08/24/24 Verified From Base 23:32 Inbound Sales Advisor For [facility] 08/24/24 Verified 24 Hours 23:32 Emergency Dysrhythmia [facility] 08/24/24 Verified Protocol 23:32 Rhythm Strips Once [facility] 08/24/24 Verified Every Shift 23:32 Oxygen By Nasal RT 08/24/24 Verified Cannula 23:32 Midodrine Tablet PHA 08/24/24 Verified (Proamatine Tablet) 23:45 Problem List: (1) Hypotension (2) GEMMA (acute kidney injury) (3) Hypotension, unspecified (4) Alcohol intoxication Date of Service: August 24, 2024 Billing Provider: MARY KEEN DNP Common Visit Codes: [id number] INP/OBS CARE (HIGH) MARY KEEN DNP August 24, 2024 23:42
[2024-08-24] MEDS: FOLIC ACID 1 MG in D5W 5% 50 ML INJ ONE (23:45)
[2024-08-24] MEDS ORDERED: DOCUSATE SOD 100 MG CAP PO PRN (23:45)
[2024-08-24] MEDS ORDERED: ACETAMINOPHEN 325 MG TAB PO PRN (23:45)
[2024-08-24] MEDS ORDERED: NITROGLYCERIN 0.4 MG SL TAB SL PRN (23:45)
[2024-08-24] MEDS ORDERED: ONDANSETRON HCL 4 MG/2 ML VIAL IV PRN (23:45)
[2024-08-25] VITALS (14 sets, daily range): BP systolic 93–145; BP diastolic 54–90; PULSE 58–81; RESP 17–20; TEMP 97.2–98.3; O2SAT 59–98
[2024-08-25] MEDS: THIAMINE 100mg/ml INJ (200mg/2ml VIAL) IV ONE (00:33)
[2024-08-25] MEDS: MIDODRINE HCL 10 MG TAB PO ONE (00:33)
[2024-08-25 03:13] LABS: Urine Bacteria None Seen /hpf (None Seen)
[2024-08-25 03:34] LABS: Urine Blood Negative /uL (Negative); Urine Clarity Clear (Clear); Urine Color Yellow (Yellow); Urine Hyaline Cast FEW /lpf (0 - 2); Urine Mucus FEW (None Seen); Urine Protein, UAD TRACE (Negative); Urine Specific Gravity 1.016 (1.001-1.035); Urine Squamous Epithelial Cell FEW /hpf (<5); Urine Urobilinogen Normal (Negative); Urine WBC 2 /HPF (0-3); Urine pH 6.5 (5.0-9.0)
[2024-08-25] MEDS: MORPHINE SULFATE INJ 2 MG/ml SYRG IV PRN ×2 (03:46→16:48)
[2024-08-25 03:53] LABS: Amphetamine Screen, Urine Neg (NEGATIVE); Barbiturate Scree,Urine Neg (NEGATIVE); Benzodiazephine Screen, Urine Neg (NEGATIVE); Cannabinoid Screen, Urine Pos (NEGATIVE); Cocaine Screen, Urine Neg (NEGATIVE); Opiate Scree,Urine Neg (NEGATIVE); Phencyclidine Screen, Urine Neg (NEGATIVE)
[2024-08-25 04:42] LABS: Basophils # (auto) 0.1 10 ^3/uL (0-0.2); Eosinophils # (auto) 0.3 10 ^3/uL (0-0.8); Eosinophils % (auto) 3.2 % (0.0-7.0); Hemoglobin 12.2 g/dL (13.5-17.5); Lymphocytes # (auto) 2.1 10 ^3/uL (0.4-5.4); Lymphocytes % (auto) 24.7 % (10.0-50.0); Mean Corpuscular Hemoglobin 31.8 pg (28.0-32.0); Mean Corpuscular Hgb Conc. 33.8 g/dL (32.0-36.0); Mean Corpuscular Volume 94.3 fL (80.0-100.0); Monocytes # (auto) 0.8 10 ^3/uL (0-1.3); Monocytes % (auto) 9.2 % (0.0-12.0); Neutrophils # (auto) 5.3 10 ^3/uL (1.6-8.6); Neutrophils % (auto) 61.9 % (37.0-80.0); Nucleated Red Blood Cells % 0.1 %; Platelet Count (auto) 153 10^3/uL (140-450); Red Blood Cells 3.82 10^6/uL (4.5-5.90); Red Cell Distribution Width 14.8 % (11.8-14.3); White Blood Cell 8.5 10^3/uL (4.4-10.8)
[2024-08-25 04:57] LABS: Alanine Aminotransferase 13 U/L (7-40); Albumin 3.9 g/dL (3.2-4.8); Alkaline Phosphatase 82 U/L (46-116); Anion Gap 10 (5-15); Aspartate Aminotransferase 14 U/L (13-40); BUN/Creatinine Ratio 18.3 (10.0-20.0); Calcium 8.7 mg/dL (8.7-10.4); Sodium 143 mmol/L (136-145); Total Protein 5.9 g/dL (5.7-8.2)
[2024-08-25 05:01] LABS: Bilirubin, Total 0.2 mg/dL (0.2-1.0); Blood Urea Nitrogen 36 mg/dL (9-23); Carbon Dioxide 20 mmol/L (20-31); Chloride 113 mmol/L (98-107); Glucose 107 mg/dL (74-106); Potassium 3.4 mmol/L (3.5-5.1)
[2024-08-25] MEDS: SODIUM CHLOR 0.9% PF (SALINE LOCK) 10ML VIAL/SYR IV SCH (05:39)
[2024-08-25] MEDS: HYDROcodone-ACET 5/325MG TAB PO PRN (06:08)
[2024-08-25] MEDS: MULTIPLE VITAMIN TAB PO SCH (09:00)
[2024-08-25] MEDS: APIXABAN 5 MG TAB PO SCH (09:00)
[2024-08-25] MEDS: THIAMINE 100mg/ml INJ (200mg/2ml VIAL) IV SCH (09:00)
[2024-08-25] MEDS ORDERED: FOLIC ACID 1 MG in D5W 5% 50 ML INJ SCH (10:00)
--- NOTE | 2024-08-25 10:21 | DVHINCON2 ---
Date Seen: August 25, 2024 Referring Physician JAMESON Roberts Reason for Consultation Hypotension History of Present Illness This is a 68-year-old man who presented to the emergency room with a chief complaint of hypotension. The patient reports he was feeling somewhat dizzy and lightheaded and found his systolic blood pressure being in the 60s-70s mmHg. Upon arrival to the emergency room he was found with a blood pressure 88/54 mmHg and a subsequent documented reading of 70/45 mmHg. Per patient, he has had approximately three similar events in the past and usually attends [facility] where he gets to be seen by his primary Skein Straightener, Dr. Chisholm, who he saw three weeks ago undergoing an unremarkable pacemaker interrogation. Patient endorses there is correlation of alcohol use and dizzy spells. Admits to intake of vodka shots x 2 and cannabinoid use. At time of assessment, the patient denies any further symptoms. Home medications include lisinopril 20 mg, amlodipine 5 mg, metoprolol 50 mg, and hydralazine 25 mg. Of note, states undergoing a recent cardiac catheterization and coronary angiogram without catheter based intervention given normal coronaries at [place] approximately 4 mos ago. Significant medical history includes persistent atrial fibrillation on Eliquis therapy, status post single-chamber pacemaker implantation (Medtronic), hypertension, dyslipidemia, end-stage COPD, benign prostatic hyperplasia, c hronic back pain, current tobacco use including 37 pack-years, alcohol dependance, cannabinoid use, and obesity. Past Medical History Past medical history reviewed. No other significant than mentioned above. Past Surgical History Single lead pacemaker (Medtronic) Back surgery Family History: FH: stroke G8 FATHER Family history: Hypertension G8 FATHER G8 BROTHER G8 BROTHER Family History Family history reviewed. Social History See HPI. Allergies: Coded Allergies: NO KNOWN ALLERGIES (Unverified , 11/27/12) Home Meds Active Scripts Hydrocodone-Acetaminophen (Hydrocodone Bitartrate/AC 10-325 mg) 1 Tab Tab, 1 TAB PO Q6HP PRN, #20 TAB Prov:NICOLLE PANDA MD 01/20/23 Multiple Vitamin (Multivitamins) Tab, 1 TAB PO DAILY, #30 TAB 5 Refills Prov:NICOLLE PANDA MD 01/20/23 Reported Medications Acetaminophen (Acetaminophen Extra Stren) 500 Mg Tab, 500 MG PO QIDPRN, TAB 01/18/23 Ascorbic Acid (VITAMIN C TABLET) 500 Mg Tb, 2 TAB PO BID, #60 TAB 01/18/23 Diphenhydramine Hcl (Benadryl Allergy) 25 Mg Cap, 25 MG PO DAILY, CAP 01/18/23 Furosemide (Furosemide) 40 Mg Tab, 40 MG PO DAILY 01/18/23 Sertraline HCl (Sertraline Hydrochloride) 25 Mg Tab, 25 MG PO DAILY, TAB 01/18/23 Pantoprazole Sodium Sesquihydr (Protonix) 40 Mg Tab, 40 MG PO DAILY, #30 TAB 01/18/23 Nitroglycerin (NTROSTAT SUBLINGUAL) 0.4 Mg Sl, 0.4 MG SL PRN, TAB *MAY REPEAT EVERY 5 MINUTES X 3 TOTAL IF NO RELIEF, INITIATE ANALGESIC THERAPY. NOTIFY PHYSICIAN *Do not crush. 01/18/23 Metoprolol Tartrate (Metoprolol Tartrate) 50 Mg Tab, 50 MG PO BID, TAB 01/18/23 Lisinopril (Lisinopril) 40 Mg Tab, 40 MG PO DAILY for 30 Days, MG 01/18/23 Finasteride (Finasteride) 5 Mg Tab, 5 MG PO DAILY, MG 01/18/23 Digoxin (Digox) 125 Mcg Tab, 125 MCG PO DAILY, TAB 01/18/23 Clonidine Hydrochloride (Clonidine Hcl) 0.1 Mg Tab, 0.1 MG PO TID, TAB 01/18/23 Atorvastatin Calcium (ATORVASTATIN CALCIUM) 20 Mg Tab, 1 TAB PO DAILY, #30 TAB 5 Refills 01/18/23 Aspirin (Aspir-Low) 81 Mg Tab, 81 MG PO DAILYPRN, MG 01/18/23 Apixaban Base (ELIQUIS) 5 Mg Tab, 5 MG PO BID, TAB 01/18/23 Amlodipine Besylate (Amlodipine Besylate) 5 Mg Tab, 5 MG PO DAILY, MG 01/18/23 Allopurinol (Allopurinol) 100 Mg Tab, 100 MG PO DAILY, TAB 01/18/23 Home Meds Home medications reviewed. Current Medications Current Medications Medications (Trade) Dose Ordered Sig/Kelly Route PRN Reason Start Time Stop Time Status Last Admin Atorvastatin Calcium (Lipitor) 10 mg HS PO 08/25/24 22:00 Thiamine HCl 100 mg DAILY IV 08/25/24 10:00 08/25/24 09:00 Folic Acid 1 mg/ Dextrose 50.2 ml @ 200.8 mls/ hr DAILY INJ 08/25/24 10:00 Apixaban (Eliquis) 5 mg BID PO 08/25/24 10:00 08/25/24 09:00 Sodium Chloride (Saline Lock Ns) 10 ml Q8HR IV 08/25/24 06:00 08/25/24 05:39 Acetaminophen/ Hydrocodone Bitart ([place] 5/325MG Tab) 1 tab Q4HP PRN PO MODERATE PAIN (4-6 PAIN SCALE) 08/24/24 23:45 08/25/24 06:08 Ondansetron HCl (Zofran) 4 mg Q4HP PRN IV NAUSEA / VOMITING 08/24/24 23:45 Docusate Sodium (Colace Capsule) 100 mg BIDPRN PRN PO FOR CONSTIPATION 08/24/24 23:45 Multivitamins (Mvi Tab) 1 tab DAILY PO 08/25/24 10:00 08/25/24 09:00 Acetaminophen (Tylenol Tablet) 650 mg Q6HP PRN PO PAIN SCALE 1-3 OR TEMP>100.4 08/24/24 23:45 Nitroglycerin (Ntrostat Sublingual) 0.4 mg Q5MINP PRN SL FOR CHEST PAIN 08/24/24 23:45 Morphine Sulfate 2 mg Q30M PRN IV FOR CHEST PAIN 08/24/24 23:45 08/25/24 03:46 Review of Systems Constitutional: No symptom reported Ears, Nose, & Throat: No symptom reported Eyes: No symptom reported Neurological: Dizziness, lightheadedness Pulmonary/Respiratory: No symptom reported Cardiovascular: No symptom reported Gastrointestinal: No symptom reported Genitourinary: No symptom reported Musculoskeletal: No symptom reported Skin: No symptom reported Psychiatric: No symptom reported Endocrine: No symptom reported Hemotologic/Lymphatic: No symptom reported Vital Signs Vital Signs Date Time Temp Pulse Resp B/P (MAP) Pulse Ox O2 Delivery O2 Flow Rate FiO2 08/25/24 08:42 97.6 61 18 129/71 (90) 98 97.6 08/25/24 08:05 Room Air* 0 21 Physical Exam General Appearance: Cooperative. Well developed. Obese. In no acute distress Head Exam: Normal inspection Neck Exam: Normal inspection. Non-tender. Normal alignment Pulmonary/Respiratory: Chest non-tender. Coarse bilateral breath sounds Cardiovascular/Chest: Irregularly irregular rate and rhythm. Atrial fibrillation, controlled rate. No murmurs. No JVD. Peripheral Pulses: 2+ Radial (R). 2+ Radial (L). 2+ Pedal (R). 2+ Pedal (L) Abdominal Exam: Normal bowel sounds. Soft. Nontender. No hepatospenomegaly. No masses Ankle Exam: Negative ankle edema Lower extremities: Negative lower extremity edema Neuro/Mental Status: A&O x4. Coherent Thoughts/Psych: Normal thought pattern. Appropriate mood and affect. Good judgement and insight Appearance: In no acute distress Skin Exam: Normal inspection. Normal color. Warm. Dry Labs/Diagnostic Data Labs Test 08/25/24 04:29 08/25/24 02:20 08/24/24 21:10 08/24/24 20:10 Range/Units White Blood Count 8.5 4.4-10.8 10^3/uL Red Blood Count 3.82 L 4.5-5.90 10^6/uL Hemoglobin 12.2 L 13.5-17.5 g/dL Hematocrit 36.0 L 41.0-53.0 % Mean Corpuscular Volume 94.3 80.0-100.0 fL Mean Corpuscular Hemoglobin 31.8 28.0-32.0 pg Mean Corpuscular Hemoglobin Concent 33.8 32.0-36.0 g/dL Red Cell Distribution Width 14.8 H 11.8-14.3 % Platelet Count 153 140-450 10^3/uL Mean Platelet Volume 7.6 6.9-10.8 fL Neutrophils (%) (Auto) 61.9 37.0-80.0 % Lymphocytes (%) (Auto) 24.7 10.0-50.0 % Monocytes (%) (Auto) 9.2 0.0-12.0 % Eosinophils (%) (Auto) 3.2 0.0-7.0 % Basophils (%) (Auto) 1.0 0.0-2.0 % Neutrophils # (Auto) 5.3 1.6-8.6 10 ^3/uL Lymphocytes # (Auto) 2.1 0.4-5.4 10 ^3/uL Monocytes # (Auto) 0.8 0-1.3 10 ^3/uL Eosinophils # (Auto) 0.3 0-0.8 10 ^3/uL Basophils # (Auto) 0.1 0-0.2 10 ^3/uL Nucleated Red Blood Cells 0.1 % Sodium Level 143 136-145 mmol/L Potassium Level 3.4 L 3.5-5.1 mmol/L Chloride Level 113 H 98-107 mmol/L Carbon Dioxide Level 20 20-31 mmol/L Anion Gap 10 5-15 Blood Urea Nitrogen 36 H 9-23 mg/dL Creatinine 1.97 H 0.700-1.30 mg/dL Glomerular Filtration Rate Calc 36 >90 mL/min BUN/Creatinine Ratio 18.3 10.0-20.0 Serum Glucose 107 H 74-106 mg/dL Calcium Level 8.7 8.7-10.4 mg/dL Total Bilirubin 0.2 0.2-1.0 mg/dL Aspartate Amino Transferase (AST) 14 13-40 U/L Alanine Aminotransferase (ALT) 13 7-40 U/L Alkaline Phosphatase 82 46-116 U/L Total Protein 5.9 5.7-8.2 g/dL Albumin 3.9 3.2-4.8 g/dL Urine Color Yellow Yellow Urine Clarity Clear Clear Urine pH 6.5 5.0-9.0 Urine Specific [place] 1.016 1.001-1.035 Urine Protein Trace H Negative Urine Ketones Negative Negative Urine Blood Negative Negative /uL Urine Nitrite Negative Negative Urine Bilirubin Negative Negative Urine Urobilinogen Normal Negative mg/dL Urine Leukocyte Esterase Negative Negative /uL Urine RBC None seen 0 - 3 /hpf Urine Microscopic WBC 2 0-3 /HPF Urine Squamous Epithelial Cells Few <5 /hpf Urine Bacteria None seen None Seen /hpf Urine Hyaline Casts Few 0 - 2 /lpf Urine Mucus Few None Seen Urine Glucose Normal Normal mg/dL Urine Opiates Screen Neg NEGATIVE Urine Fentanyl Screen Neg NEGATIVE Urine Barbiturates Screen Neg NEGATIVE Urine Phencyclidine Screen Neg NEGATIVE Urine Amphetamines Screen Neg NEGATIVE Urine Benzodiazepines Screen Neg NEGATIVE Urine Cocaine Screen Neg NEGATIVE Urine Cannabinoids Screen Pos NEGATIVE Troponin I High Sensitivity 16 </=54 ng/L Lactic Acid Level 1.6 0.4-2.0 mmol/L Magnesium Level 1.8 1.6-2.6 mg/dL C-Reactive Protein High Sensitivity 0.19 <1.0 mg/dL B-Type Natriuretic Peptide 100.49 0-100 pg/mL Plasma/Serum Blood Alcohol 123.0 H <10 mg/dL Test 08/24/24 19:54 Range/Units POC Glucose 106 70-106 mg/dl Assessment Hypovolemic shock 2/2 alcohol intoxication/dehydration Presence of permanent pacemaker (Medtronic) Persistent atrial fibrillation, stage III, on Eliquis Alcohol/nicotine/cannabinoid dependence End-stage COPD Hypertension GEMMA on CKD Obesity Plan/Recommendation (Dr. Davenport) The patient presents with the acute hypotension secondary to alcohol intoxication and dehydration. Avoid home antihypertensives in the time being. Initiate IV fluids with a banana bag. Underwent a recent uneventful visit with primary warehouse supervisor, Dr. Chisholm. Continue follow-up as scheduled. Orthostatic VS are negative. Strongly recommended on risk factor modifications and life style changes. Cardiac stable. There is no further cardiac work-up indicated at this time. Kindly call if in need to re-consult. Thank you for allowing us to participate in this patient's care. Please call if you have any questions or concerns. This medical document was created using an electronic medical record system with voice recognition software and computerized dictation system. Although this document has been carefully reviewed, there might still be some phonetic and typographical errors. Occasional wrong-word or ``sound-alike�� substitutions may have occurred due to the inherent limitations of voice recognition software. These areas are purely typographical due to imperfections of the software programs and do not reflect any compromise in the patient's medical care. Please read the chart carefully and recognize, using context, where these substitutions have occurred. Plan discussed with: Patient, Other NYHA Physical activity limitations: NA Date of Service: August 25, 2024 Billing Provider: DENITA BLANKENSHIP Cardiology Common Codes: [id number] INP/OBS CARE (High) DENITA BLANKENSHIP August 25, 2024 10:21
--- NOTE | 2024-08-25 10:30 | DVHINCON2 ---
Date of service: August 25, 2024 Referring Physician Diaz Roberts, nurse practitioner Reason for Consultation Acute kidney injury History of Present Illness Patient is 68-year-old male with past medical history significant for hypertension, COPD and AFib, status post pacemaker insertion who was admitted for lightheadedness dizziness and hypotension. On admission patient found to have elevated BUN creatinine nephrology is consulted for acute kidney injury Past Medical History hypertension, COPD and AFib, Past Surgical History Pacemaker Allergies: Coded Allergies: NO KNOWN ALLERGIES (Unverified , 11/27/12) Home Meds Active Scripts Hydrocodone-Acetaminophen (Hydrocodone Bitartrate/AC 10-325 mg) 1 Tab Tab, 1 TAB PO Q6HP PRN, #20 TAB Prov:NICOLLE PANDA MD 01/20/23 Multiple Vitamin (Multivitamins) Tab, 1 TAB PO DAILY, #30 TAB 5 Refills Prov:NICOLLE PANDA MD 01/20/23 Reported Medications Acetaminophen (Acetaminophen Extra Stren) 500 Mg Tab, 500 MG PO QIDPRN, TAB 01/18/23 Ascorbic Acid (VITAMIN C TABLET) 500 Mg Tb, 2 TAB PO BID, #60 TAB 01/18/23 Diphenhydramine Hcl (Benadryl Allergy) 25 Mg Cap, 25 MG PO DAILY, CAP 01/18/23 Furosemide (Furosemide) 40 Mg Tab, 40 MG PO DAILY 01/18/23 Sertraline HCl (Sertraline Hydrochloride) 25 Mg Tab, 25 MG PO DAILY, TAB 01/18/23 Pantoprazole Sodium Sesquihydr (Protonix) 40 Mg Tab, 40 MG PO DAILY, #30 TAB 01/18/23 Nitroglycerin (NTROSTAT SUBLINGUAL) 0.4 Mg Sl, 0.4 MG SL PRN, TAB *MAY REPEAT EVERY 5 MINUTES X 3 TOTAL IF NO RELIEF, INITIATE ANALGESIC THERAPY. NOTIFY PHYSICIAN *Do not crush. 01/18/23 Metoprolol Tartrate (Metoprolol Tartrate) 50 Mg Tab, 50 MG PO BID, TAB 01/18/23 Lisinopril (Lisinopril) 40 Mg Tab, 40 MG PO DAILY for 30 Days, MG 01/18/23 Finasteride (Finasteride) 5 Mg Tab, 5 MG PO DAILY, MG 01/18/23 Digoxin (Digox) 125 Mcg Tab, 125 MCG PO DAILY, TAB 01/18/23 Clonidine Hydrochloride (Clonidine Hcl) 0.1 Mg Tab, 0.1 MG PO TID, TAB 01/18/23 Atorvastatin Calcium (ATORVASTATIN CALCIUM) 20 Mg Tab, 1 TAB PO DAILY, #30 TAB 5 Refills 01/18/23 Aspirin (Aspir-Low) 81 Mg Tab, 81 MG PO DAILYPRN, MG 01/18/23 Apixaban Base (ELIQUIS) 5 Mg Tab, 5 MG PO BID, TAB 01/18/23 Amlodipine Besylate (Amlodipine Besylate) 5 Mg Tab, 5 MG PO DAILY, MG 01/18/23 Allopurinol (Allopurinol) 100 Mg Tab, 100 MG PO DAILY, TAB 01/18/23 Current Medications Current Medications Medications (Trade) Dose Ordered Sig/Kelly Route PRN Reason Start Time Stop Time Status Last Admin Atorvastatin Calcium (Lipitor) 10 mg HS PO 08/25/24 22:00 Thiamine HCl 100 mg DAILY IV 08/25/24 10:00 08/25/24 10:07 DC 08/25/24 09:00 Folic Acid 1 mg/ Dextrose 50.2 ml @ 200.8 mls/ hr DAILY INJ 08/25/24 10:00 08/25/24 10:07 DC Apixaban (Eliquis) 5 mg BID PO 08/25/24 10:00 08/25/24 09:00 Sodium Chloride (Saline Lock Ns) 10 ml Q8HR IV 08/25/24 06:00 08/25/24 05:39 Acetaminophen/ Hydrocodone Bitart ([place] 5/325MG Tab) 1 tab Q4HP PRN PO MODERATE PAIN (4-6 PAIN SCALE) 08/24/24 23:45 08/25/24 06:08 Ondansetron HCl (Zofran) 4 mg Q4HP PRN IV NAUSEA / VOMITING 08/24/24 23:45 Docusate Sodium (Colace Capsule) 100 mg BIDPRN PRN PO FOR CONSTIPATION 08/24/24 23:45 Multivitamins (Mvi Tab) 1 tab DAILY PO 08/25/24 10:00 08/25/24 09:00 Acetaminophen (Tylenol Tablet) 650 mg Q6HP PRN PO PAIN SCALE 1-3 OR TEMP>100.4 08/24/24 23:45 Nitroglycerin (Ntrostat Sublingual) 0.4 mg Q5MINP PRN SL FOR CHEST PAIN 08/24/24 23:45 Morphine Sulfate 2 mg Q30M PRN IV FOR CHEST PAIN 08/24/24 23:45 08/25/24 03:46 Folic Acid 1 mg/ Magnesium Sulfate 8 meq/ Multivitamins 10 ml/Thiamine HCl 100 mg/Sodium Chloride 1,013.2 ml @ 126.247 mls/hr DAILY@1800 INJ 08/25/24 10:15 Family History: FH: stroke G8 FATHER Family history: Hypertension G8 FATHER G8 BROTHER G8 BROTHER Review of Systems All 12 item review of systems reviewed with the patient nonsignificant except what is mentioned in the history of present illness H&P Exam Vital Signs/I&O Vital Sign Date Time Temp Pulse Resp B/P (MAP) Pulse Ox O2 Delivery O2 Flow Rate FiO2 08/25/24 10:17 65 20 110/61 (77) 08/25/24 10:15 64 08/25/24 08:42 97.6 97.6 08/25/24 08:05 Room Air* 0 21 Intake and Output 08/24/24 08/25/24 19:00 07:00 Intake Total 1989.24794 ml Output Total 300 ml Balance 1689.22678 ml Intake IV Total 1989.53166 ml Output Urine Total 300 ml Physical Exam Patient is awake alert Lungs clear to auscultation bilaterally Cardiac exam regular rate and rhythm GI soft nontender was normal Extremities no clubbing cyanosis or edema Neuro nonfocal Labs/Diagnostic Data Labs/Diagnostic Data Laboratory Tests Test 08/25/24 04:29 08/25/24 02:20 08/24/24 21:10 08/24/24 20:10 Range/Units White Blood Count 8.5 9.6 4.4-10.8 10^3/uL Red Blood Count 3.82 L 4.22 L 4.5-5.90 10^6/uL Hemoglobin 12.2 L 13.5 13.5-17.5 g/dL Hematocrit 36.0 L 39.9 L 41.0-53.0 % Mean Corpuscular Volume 94.3 94.6 80.0-100.0 fL Mean Corpuscular Hemoglobin 31.8 31.9 28.0-32.0 pg Mean Corpuscular Hemoglobin Concent 33.8 33.7 32.0-36.0 g/dL Red Cell Distribution Width 14.8 H 14.7 H 11.8-14.3 % Platelet Count 153 180 140-450 10^3/uL Mean Platelet Volume 7.6 7.9 6.9-10.8 fL Neutrophils (%) (Auto) 61.9 58.4 37.0-80.0 % Lymphocytes (%) (Auto) 24.7 26.2 10.0-50.0 % Monocytes (%) (Auto) 9.2 11.0 0.0-12.0 % Eosinophils (%) (Auto) 3.2 3.5 0.0-7.0 % Basophils (%) (Auto) 1.0 0.9 0.0-2.0 % Neutrophils # (Auto) 5.3 5.6 1.6-8.6 10 ^3/uL Lymphocytes # (Auto) 2.1 2.5 0.4-5.4 10 ^3/uL Monocytes # (Auto) 0.8 1.1 0-1.3 10 ^3/uL Eosinophils # (Auto) 0.3 0.3 0-0.8 10 ^3/uL Basophils # (Auto) 0.1 0.1 0-0.2 10 ^3/uL Nucleated Red Blood Cells 0.1 0.1 % Sodium Level 143 141 136-145 mmol/L Potassium Level 3.4 L 3.7 3.5-5.1 mmol/L Chloride Level 113 H 111 H 98-107 mmol/L Carbon Dioxide Level 20 19 L 20-31 mmol/L Anion Gap 10 11 5-15 Blood Urea Nitrogen 36 H 35 H 9-23 mg/dL Creatinine 1.97 H 2.11 H 0.700-1.30 mg/dL Glomerular Filtration Rate Calc 36 33 >90 mL/min BUN/Creatinine Ratio 18.3 16.6 10.0-20.0 Serum Glucose 107 H 92 74-106 mg/dL Calcium Level 8.7 9.9 8.7-10.4 mg/dL Total Bilirubin 0.2 0.4 0.2-1.0 mg/dL Aspartate Amino Transferase (AST) 14 21 13-40 U/L Alanine Aminotransferase (ALT) 13 21 7-40 U/L Alkaline Phosphatase 82 91 46-116 U/L Total Protein 5.9 6.4 5.7-8.2 g/dL Albumin 3.9 4.3 3.2-4.8 g/dL Urine Color Yellow Yellow Urine Clarity Clear Clear Urine pH 6.5 5.0-9.0 Urine Specific [place] 1.016 1.001-1.035 Urine Protein Trace H Negative Urine Ketones Negative Negative Urine Blood Negative Negative /uL Urine Nitrite Negative Negative Urine Bilirubin Negative Negative Urine Urobilinogen Normal Negative mg/dL Urine Leukocyte Esterase Negative Negative /uL Urine RBC None seen 0 - 3 /hpf Urine Microscopic WBC 2 0-3 /HPF Urine Squamous Epithelial Cells Few <5 /hpf Urine Bacteria None seen None Seen /hpf Urine Hyaline Casts Few 0 - 2 /lpf Urine Mucus Few None Seen Urine Glucose Normal Normal mg/dL Urine Opiates Screen Neg NEGATIVE Urine Fentanyl Screen Neg NEGATIVE Urine Barbiturates Screen Neg NEGATIVE Urine Phencyclidine Screen Neg NEGATIVE Urine Amphetamines Screen Neg NEGATIVE Urine Benzodiazepines Screen Neg NEGATIVE Urine Cocaine Screen Neg NEGATIVE Urine Cannabinoids Screen Pos NEGATIVE Troponin I High Sensitivity 16 </=54 ng/L Lactic Acid Level 1.6 0.4-2.0 mmol/L Magnesium Level 1.8 1.6-2.6 mg/dL C-Reactive Protein High Sensitivity 0.19 <1.0 mg/dL B-Type Natriuretic Peptide 100.49 0-100 pg/mL Plasma/Serum Blood Alcohol 123.0 H <10 mg/dL Test 08/24/24 20:00 08/24/24 19:54 Range/Units Troponin I High Sensitivity 18 </=54 ng/L POC Glucose 106 70-106 mg/dl Assessment Acute kidney injury superimposed Chronic Kidney Disease secondary hemodynamic mediated Hypotension due to excessive blood pressure medication Atrial fibrillation COPD Hypokalemia Recommendations Closely monitor fluid and electrolytes Avoid nephrotoxic medications Strict I&Os Check urine electrolytes Check kidney ultrasound Hold blood pressure medicine I agree with IV fluid hydration KCL replacement We will continue to follow Patient seen and examined by myself. I discussed my plan of care with the patient and primary nurse at the bedside I would like to thank Diaz for the consult, will follow up Plan discussed with: Patient ILIR PATEL MD August 25, 2024 10:30
[2024-08-25 11:05] LABS: Magnesium 1.8 mg/dL (1.6-2.6)
[2024-08-25] MEDS: MAGNESIUM SULFATE 1GM/100ML 100 ML IV ONE (11:09)
[2024-08-25] MEDS: POTASSIUM CHL 20 Meq TABLET PO ONE (11:16)
--- NOTE | 2024-08-25 11:21 | DVH ---
INDICATION: racheal TECHNIQUE: Multiple real-time sonographic images of the kidneys and bladder were obtained. COMPARISON: None FINDINGS: The right kidney measures 12.2 cm in length, which is normal in size. There is normal echog enicity of the right kidney. No hydronephrosis. The left kidney measures 10.8 cm in length, which is normal in size. There is normal echogenicity of the left kidney. No hydronephrosis. No large intraluminal masses are seen in the bladder. Prior to voiding the bladder volume measures vo lume 78 cc. IMPRESSION: 1. Normal sonographic appearance of the kidneys. No hydronephrosis.
[2024-08-25 12:14] LABS: Protein, Urine 45.1 mg/dL (1-14)
[2024-08-25 12:17] LABS: Creatinine, Urine 112.39 mg/dL (30.0-125.0); Urine Protein/Creatinine Ratio 0.4
[2024-08-25] MEDS: FOLIC ACID 1 MG, MAGNESIUM SULF SDV 50% 8 MEQ, MULTIPLE VITAMIN 10 ML, THIAMINE INJ 100... INJ SCH (12:17)
--- NOTE | 2024-08-25 13:59 | ECG ---
[facility] Test Date: 2024-08-24 Test Time: 19:56:22 Pat Name: ELENITA KUO Department: ER Room: 0218T A Gender: M [employer] Crane Operator: TYRONE : 1955 Requested By: ISSA KRAFT Order Number: [id number] Reading MD: Obey aPcker Measurements Intervals [place] Rate: 60 P: 0 IN: 44 QRS: -79 QRSD: 167 T: 84 QT: 507 QTc: 507 Interpretive Statements Ventricular-paced rhythm No further analysis attempted due to paced rhythm Baseline wander in lead(s) I,II,aVR,V3 Electronically Signed On 08-30-2024 12:05:29 PDT by Obey Packer Please click the below link to view image of tracing.
--- NOTE | 2024-08-25 15:24 | DVHINCON2 ---
Date Seen: August 25, 2024 Referring Physician JAMESON Roberts Reason for Consultation Hypotension History of Present Illness This is a 68-year-old male with a past medical history of persistent atrial fibrillation on Eliquis therapy, status post single-chamber pacemaker implantation (Medtronic), hypertension, dyslipidemia, end-stage COPD, benign prostatic hyperplasia, chronic back pain, current tobacco use including 37 pack-years, alcohol dependance, cannabinoid use, and obesity who presented to the ED with complaint of low blood pressure. The patient reports he was feeling somewhat dizzy and lightheaded and found his systolic blood pressure being in the 60s-70s mmHg. Upon arrival he was found with a blood pressure 88/54 mmHg and a subsequent documented reading of 70/45 mmHg. Per patient, he has had approxi mately three similar events in the past and usually attends [facility] where he gets to be seen by his primary Treating And Pumping Supervisor, Dr. Chisholm, who he saw three weeks ago undergoing an unremarkable pacemaker interrogation. Patient endorses there is correlation of alcohol use and dizzy spells. Patient admits to intake of vodka shots x 2 and cannabinoid use. At time of assessment, the patient denies any further symptoms. Home medications include lisinopril 20 mg, amlodipine 5 mg, metoprolol 50 mg, and hydralazine 25 mg. Of note, states undergoing a recent cardiac catheterization and coronary angiogram without catheter based intervention given normal coronaries at [place] approximately 4 mos ago. K 3.4, BUN 36, [employer] 1.97. Chest x-ray showed NAD. Patient was admitted to the hospital. I am asked to consult on this patient. Past Medical History Past medical history reviewed. No other significant than mentioned above. Past Surgical History Single lead pacemaker (Medtronic) Back surgery Family History: FH: stroke G8 FATHER Family history: Hypertension G8 FATHER G8 BROTHER G8 BROTHER Allergies: Coded Allergies: NO KNOWN ALLERGIES (Unverified , 11/27/12) Home Meds Active Scripts Hydrocodone-Acetaminophen (Hydrocodone Bitartrate/AC 10-325 mg) 1 Tab Tab, 1 TAB PO Q6HP PRN, #20 TAB Prov:NICOLLE PANDA MD 01/20/23 Multiple Vitamin (Multivitamins) Tab, 1 TAB PO DAILY, #30 TAB 5 Refills Prov:NICOLLE PANDA MD 01/20/23 Reported Medications Acetaminophen (Acetaminophen Extra Stren) 500 Mg Tab, 500 MG PO QIDPRN, TAB 01/18/23 Ascorbic Acid (VITAMIN C TABLET) 500 Mg Tb, 2 TAB PO BID, #60 TAB 01/18/23 Diphenhydramine Hcl (Benadryl Allergy) 25 Mg Cap, 25 MG PO DAILY, CAP 01/18/23 Furosemide (Furosemide) 40 Mg Tab, 40 MG PO DAILY 01/18/23 Sertraline HCl (Sertraline Hydrochloride) 25 Mg Tab, 25 MG PO DAILY, TAB 01/18/23 Pantoprazole Sodium Sesquihydr (Protonix) 40 Mg Tab, 40 MG PO DAILY, #30 TAB 01/18/23 Nitroglycerin (NTROSTAT SUBLINGUAL) 0.4 Mg Sl, 0.4 MG SL PRN, TAB *MAY REPEAT EVERY 5 MINUTES X 3 TOTAL IF NO RELIEF, INITIATE ANALGESIC THERAPY. NOTIFY PHYSICIAN *Do not crush. 01/18/23 Metoprolol Tartrate (Metoprolol Tartrate) 50 Mg Tab, 50 MG PO BID, TAB 01/18/23 Lisinopril (Lisinopril) 40 Mg Tab, 40 MG PO DAILY for 30 Days, MG 01/18/23 Finasteride (Finasteride) 5 Mg Tab, 5 MG PO DAILY, MG 01/18/23 Digoxin (Digox) 125 Mcg Tab, 125 MCG PO DAILY, TAB 01/18/23 Clonidine Hydrochloride (Clonidine Hcl) 0.1 Mg Tab, 0.1 MG PO TID, TAB 01/18/23 Atorvastatin Calcium (ATORVASTATIN CALCIUM) 20 Mg Tab, 1 TAB PO DAILY, #30 TAB 5 Refills 01/18/23 Aspirin (Aspir-Low) 81 Mg Tab, 81 MG PO DAILYPRN, MG 01/18/23 Apixaban Base (ELIQUIS) 5 Mg Tab, 5 MG PO BID, TAB 01/18/23 Amlodipine Besylate (Amlodipine Besylate) 5 Mg Tab, 5 MG PO DAILY, MG 01/18/23 Allopurinol (Allopurinol) 100 Mg Tab, 100 MG PO DAILY, TAB 01/18/23 Current Medications Current Medications Medications (Trade) Dose Ordered Sig/Kelly Route PRN Reason Start Time Stop Time Status Last Admin Atorvastatin Calcium (Lipitor) 10 mg HS PO 08/25/24 22:00 Thiamine HCl 100 mg DAILY IV 08/25/24 10:00 08/25/24 10:07 DC 08/25/24 09:00 Folic Acid 1 mg/ Dextrose 50.2 ml @ 200.8 mls/ hr DAILY INJ 08/25/24 10:00 08/25/24 10:07 DC Apixaban (Eliquis) 5 mg BID PO 08/25/24 10:00 08/25/24 09:00 Sodium Chloride (Saline Lock Ns) 10 ml Q8HR IV 08/25/24 06:00 08/25/24 05:39 Acetaminophen/ Hydrocodone Bitart (White 5/325MG Tab) 1 tab Q4HP PRN PO MODERATE PAIN (4-6 PAIN SCALE) 08/24/24 23:45 08/25/24 06:08 Ondansetron HCl (Zofran) 4 mg Q4HP PRN IV NAUSEA / VOMITING 08/24/24 23:45 Docusate Sodium (Colace Capsule) 100 mg BIDPRN PRN PO FOR CONSTIPATION 08/24/24 23:45 Multivitamins (Mvi Tab) 1 tab DAILY PO 08/25/24 10:00 08/25/24 09:00 Acetaminophen (Tylenol Tablet) 650 mg Q6HP PRN PO PAIN SCALE 1-3 OR TEMP>100.4 08/24/24 23:45 Nitroglycerin (Ntrostat Sublingual) 0.4 mg Q5MINP PRN SL FOR CHEST PAIN 08/24/24 23:45 Morphine Sulfate 2 mg Q30M PRN IV FOR CHEST PAIN 08/24/24 23:45 08/25/24 03:46 Folic Acid 1 mg/ Magnesium Sulfate 8 meq/ Multivitamins 10 ml/Thiamine HCl 100 mg/Sodium Chloride 1,013.2 ml @ 126.247 mls/hr DAILY@1800 INJ 08/25/24 10:15 Review of Systems Constitutional: No symptom reported Ears, Nose, & Throat: No symptom reported Eyes: No symptom reported Neurological: Dizziness, lightheadedness Pulmonary/Respiratory: No symptom reported Cardiovascular: No symptom reported Gastrointestinal: No symptom reported Genitourinary: No symptom reported Musculoskeletal: No symptom reported Skin: No symptom reported Psychiatric: No symptom reported Endocrine: No symptom reported Hemotologic/Lymphatic: No symptom reported Vital Signs Vital Signs Date Time Temp Pulse Resp B/P (MAP) Pulse Ox O2 Delivery O2 Flow Rate FiO2 08/25/24 10:17 65 20 110/61 (77) 08/25/24 10:15 08/25/24 08:42 97.6 97.6 08/25/24 08:05 Room Air* 0 21 Physical Exam GENERAL: Alert and oriented x 3. No acute distress. Obese. EYES: PERRL, EOMI. Anicteric. HENT: Moist mucous membranes. LUNGS: Clear to auscultation bilaterally. CARDIOVASCULAR: Irregular rate and rhythm. ABDOMEN: Soft, nontender and nondistended. EXTREMITIES: No edema. NEUROLOGIC: No focal neurological deficits. SKIN: Warm, dry. Labs/Diagnostic Data Labs Test 08/25/24 11:50 08/25/24 04:29 08/25/24 02:20 08/24/24 21:10 Range/Units Urine Sodium 20 L 40-220 mmol/L White Blood Count 8.5 4.4-10.8 10^3/uL Red Blood Count 3.82 L 4.5-5.90 10^6/uL Hemoglobin 12.2 L 13.5-17.5 g/dL Hematocrit 36.0 L 41.0-53.0 % Mean Corpuscular Volume 94.3 80.0-100.0 fL Mean Corpuscular Hemoglobin 31.8 28.0-32.0 pg Mean Corpuscular Hemoglobin Concent 33.8 32.0-36.0 g/dL Red Cell Distribution Width 14.8 H 11.8-14.3 % Platelet Count 153 140-450 10^3/uL Mean Platelet Volume 7.6 6.9-10.8 fL Neutrophils (%) (Auto) 61.9 37.0-80.0 % Lymphocytes (%) (Auto) 24.7 10.0-50.0 % Monocytes (%) (Auto) 9.2 0.0-12.0 % Eosinophils (%) (Auto) 3.2 0.0-7.0 % Basophils (%) (Auto) 1.0 0.0-2.0 % Neutrophils # (Auto) 5.3 1.6-8.6 10 ^3/uL Lymphocytes # (Auto) 2.1 0.4-5.4 10 ^3/uL Monocytes # (Auto) 0.8 0-1.3 10 ^3/uL Eosinophils # (Auto) 0.3 0-0.8 10 ^3/uL Basophils # (Auto) 0.1 0-0.2 10 ^3/uL Nucleated Red Blood Cells 0.1 % Sodium Level 143 136-145 mmol/L Potassium Level 3.4 L 3.5-5.1 mmol/L Chloride Level 113 H 98-107 mmol/L Carbon Dioxide Level 20 20-31 mmol/L Anion Gap 10 5-15 Blood Urea Nitrogen 36 H 9-23 mg/dL Creatinine 1.97 H 0.700-1.30 mg/dL Glomerular Filtration Rate Calc 36 >90 mL/min BUN/Creatinine Ratio 18.3 10.0-20.0 Serum Glucose 107 H 74-106 mg/dL Calcium Level 8.7 8.7-10.4 mg/dL Phosphorus Level 5.0 2.4-5.1 mg/dL Magnesium Level 1.8 1.6-2.6 mg/dL Total Bilirubin 0.2 0.2-1.0 mg/dL Aspartate Amino Transferase (AST) 14 13-40 U/L Alanine Aminotransferase (ALT) 13 7-40 U/L Alkaline Phosphatase 82 46-116 U/L Total Protein 5.9 5.7-8.2 g/dL Albumin 3.9 3.2-4.8 g/dL Parathyroid Hormone (Intact) 51.8 18.4-80.1 pg/mL Urine Color Yellow Yellow Urine Clarity Clear Clear Urine pH 6.5 5.0-9.0 Urine Specific [place] 1.016 1.001-1.035 Urine Protein Trace H Negative Urine Ketones Negative Negative Urine Blood Negative Negative /uL Urine Nitrite Negative Negative Urine Bilirubin Negative Negative Urine Urobilinogen Normal Negative mg/dL Urine Leukocyte Esterase Negative Negative /uL Urine RBC None seen 0 - 3 /hpf Urine Microscopic WBC 2 0-3 /HPF Urine Squamous Epithelial Cells Few <5 /hpf Urine Bacteria None seen None Seen /hpf Urine Hyaline Casts Few 0 - 2 /lpf Urine Mucus Few None Seen Urine Glucose Normal Normal mg/dL Urine Opiates Screen Neg NEGATIVE Urine Fentanyl Screen Neg NEGATIVE Urine Barbiturates Screen Neg NEGATIVE Urine Phencyclidine Screen Neg NEGATIVE Urine Amphetamines Screen Neg NEGATIVE Urine Benzodiazepines Screen Neg NEGATIVE Urine Cocaine Screen Neg NEGATIVE Urine Cannabinoids Screen Pos NEGATIVE Troponin I High Sensitivity 16 </=54 ng/L Test 08/24/24 20:10 08/24/24 19:54 Range/Units Lactic Acid Level 1.6 0.4-2.0 mmol/L C-Reactive Protein High Sensitivity 0.19 <1.0 mg/dL B-Type Natriuretic Peptide 100.49 0-100 pg/mL Plasma/Serum Blood Alcohol 123.0 H <10 mg/dL POC Glucose 106 70-106 mg/dl Assessment Hypovolemic shock 2/2 alcohol intoxication/dehydration. Presence of permanent pacemaker (Medtronic). Persistent atrial fibrillation, stage III, on Eliquis. Alcohol/nicotine/cannabinoid dependence. End-stage COPD. Hypertension. GEMMA on CKD. Obesity. Plan/Recommendation I agree with your ongoing assessment and care of plan. Patient has been seen by Tonya Rene NP on my behalf, her and I discussed the plan with the patient. The patient presents with the acute hypotension secondary to alcohol intoxication and dehydration. Avoid home antihypertensives in the time being. Initiate IV fluids with a banana bag. Underwent a recent uneventful visit with primary poultry farm laborer, Dr. Chisholm. Continue follow-up as scheduled. Orthostatic VS are negative. Strongly recommended on risk factor modifications and lifestyle changes. Cardiac stable. Morphine and White for pain management. Eliquis. Lipitor. Additional plan as per the hospital course. Plan discussed with: Patient NYHA Physical activity limitations: NA Date of Service: August 25, 2024 Billing Provider: JYOTSNA SCOTT MD Cardiology Common Codes: [id number] INP/OBS CARE (High) JYOTSNA SCOTT MD August 25, 2024 12:16
--- NOTE | 2024-08-25 16:15 | DVHPN2 ---
Subjective 68-year-old male presented to the emergency room with lightheadedness and dizziness and low blood pressure. Blood pressure was low in the 70s, on admission his blood pressure was 70/45 He was given IV fluids and then admitted to the floor He was also found with alcohol intoxication He says he has chronic back pain and uses gummies for the pain Changes from previous H/P or p: Changes Eyes: No Pain, No Vision change, No Conjunctivae inflammation, No Eyelid inflammation, No Other, No Redness ENT: No Ear pain, No Ear discharge, No Nose pain, No Nose discharge, No Nose congestion, No Mouth pain, No Mouth swelling, No Throat pain, No Throat swelling, No Other Cardiovascular: No Chest Pain, No Palpitations, No Orthopnea, No Paroxysmal Noc. Dyspnea, No Edema, No Lt Headedness, No Other Respiratory: No Cough, No Dry, No Shortness of breath, No SOB with excertion, No Wheezing, No Hemoptysis, No Pleuritic Pain, No Sputum, No Other Gastrointestinal: No Nausea, No Vomiting, No Abdominal Pain, No Diarrhea, No Constipation, No Melena, No Hematochezia, No Other Genitourinary: No Dysuria, No Frequency, No Incontinence, No Hematuria, No Retention, No Other Musculoskeletal: No other, No neck pain, No shoulder pain, No arm pain, No back pain, No hand pain, No leg pain, No foot pain Skin: No Rash, No Lesions, No Jaundice, No Bruising, No Other Objective Vitals Vital Signs Date Time Temp Pulse Resp B/P (MAP) Pulse Ox O2 Delivery O2 Flow Rate FiO2 08/25/24 13:00 59 93/63 (73) 95 08/25/24 13:00 98.0 17 98.0 08/25/24 08:05 Room Air* 0 21 Intake/Output Intake and Output 08/25/24 07:00 Intake Total 1988.70026 ml Output Total 300 ml Balance 168.42279 ml Intake IV Total 1988.27438 ml Output Urine Total 300 ml General Appearance: Alert, Oriented X3, Cooperative, No acute distress Lungs: Clear to auscultation, Normal air movement Cardiovascular: Regular rate, Normal S1, Normal S2 Extremities: No edema Medications Current Medications Medications Dose Ordered Sig/Kelly Route Start Time Stop Time Status Last Admin Dose Admin Atorvastatin Calcium 10 mg HS PO 08/25/24 22:00 Apixaban 5 mg BID PO 08/25/24 10:00 08/25/24 09:00 5 MG Sodium Chloride 10 ml Q8HR IV 08/25/24 06:00 08/25/24 14:12 10 ML Acetaminophen/ Hydrocodone Bitart 1 tab Q4HP PRN PO 08/24/24 23:45 08/25/24 14:12 1 TAB Ondansetron HCl 4 mg Q4HP PRN IV 08/24/24 23:45 Docusate Sodium 100 mg BIDPRN PRN PO 08/24/24 23:45 Multivitamins 1 tab DAILY PO 08/25/24 10:00 08/25/24 09:00 1 TAB Acetaminophen 650 mg Q6HP PRN PO 08/24/24 23:45 Nitroglycerin 0.4 mg Q5MINP PRN SL 08/24/24 23:45 Morphine Sulfate 2 mg Q30M PRN IV 08/24/24 23:45 08/25/24 03:46 2 MG Folic Acid 1 mg/ Magnesium Sulfate 8 meq/ Multivitamins 10 ml/Thiamine HCl 100 mg/Sodium Chloride 1,013.2 ml @ 126.247 mls/hr DAILY@1800 INJ 08/25/24 10:15 08/25/24 12:17 126.247 MLS/HR Laboratory Results Laboratory Tests 08/25/24 04:29 Chemistry Test 08/24/24 20:10 08/25/24 04:29 Albumin 4.3 g/dL (3.2-4.8) 3.9 g/dL (3.2-4.8) Calcium Level 9.9 mg/dL (8.7-10.4) 8.7 mg/dL (8.7-10.4) Magnesium Level 1.8 mg/dL (1.6-2.6) 1.8 mg/dL (1.6-2.6) Total Protein 6.4 g/dL (5.7-8.2) 5.9 g/dL (5.7-8.2) Phosphorus Level 5.0 mg/dL (2.4-5.1) Cardiac Markers Test 08/24/24 20:10 B-Type Natriuretic Peptide 100.49 pg/mL (0-100) LFT Test 08/24/24 20:10 08/25/24 04:29 Alanine Aminotransferase (ALT) 21 U/L (7-40) 13 U/L (7-40) Alkaline Phosphatase 91 U/L (46-116) 82 U/L (46-116) Aspartate Amino Transferase (AST) 21 U/L (13-40) 14 U/L (13-40) Total Bilirubin 0.4 mg/dL (0.2-1.0) 0.2 mg/dL (0.2-1.0) Urinalysis Test 08/25/24 02:20 08/25/24 11:50 Urine Color Yellow (Yellow) Urine Clarity Clear (Clear) Urine pH 6.5 (5.0-9.0) Urine Specific [place] 1.016 (1.001-1.035) Urine Protein Trace (Negative) H Urine Ketones Negative (Negative) Urine Blood Negative /uL (Negative) Urine Nitrite Negative (Negative) Urine Bilirubin Negative (Negative) Urine Urobilinogen Normal mg/dL (Negative) Urine Leukocyte Esterase Negative /uL (Negative) Urine RBC None seen /hpf (0 - 3) Urine Microscopic WBC 2 /HPF (0-3) Urine Squamous Epithelial Cells Few /hpf (<5) Urine Bacteria None seen /hpf (None Seen) Urine Hyaline Casts Few /lpf (0 - 2) Urine Mucus Few (None Seen) Urine Glucose Normal mg/dL (Normal) Urine Creatinine 112.39 mg/dL (30.0-125.0) Urine Protein/Creatinine Ratio 0.40 Urine Sodium 20 mmol/L (40-220) L Urine Total Protein 45.1 mg/dL (1-14) H Assessment/Plan Assessment/Plan Acute kidney injury hemodynamically mediated Hypovolemic shock Alcohol intoxication Dehydration Persistent atrial fibrillation on Eliquis Alcohol dependence Cannabinoids dependence Nicotine dependence Advanced COPD Hypertension Acute on chronic kidney disease Obesity Chronic low back pain Hypokalemia Plan Continue IV fluids Replace potassium as needed Multivitamins Nephrology consult Cardiology consult Monitor closely Monitor the kidney function daily The rest of the management will depend on the hospital course Full code Plan discussed with: Patient Date of Service: August 25, 2024 Billing Provider: NICOLLE PANDA MD Common Visit Codes: NOT BILLABLE NICOLLE PANDA MD August 25, 2024 16:14
[2024-08-25] MEDS ORDERED: PRE5T PO (18:08)
[2024-08-25] MEDS ORDERED: LISI20TA56 PO (18:08)
[2024-08-25] MEDS ORDERED: ALBU2TAB11 IN (18:08)
[2024-08-25] MEDS ORDERED: HYDR25TA88 PO (18:08)
[2024-08-25] MEDS ORDERED: FLUT1AER17 IN (18:08)
[2024-08-25] MEDS: IPRATROPIUM BROM 0.5 MG/2.5ML INH SOL NEB PRN (18:15)
[2024-08-25] MEDS: ALBUTEROL SULF 2.5 MG/0.5ML(0.5%) NEB SOLN NEB PRN (18:15)
[2024-08-25] MEDS: THIAMINE HCL 100 MG TAB PO ONE (21:31)
[2024-08-25] MEDS: FOLIC ACID 1 MG TAB PO ONE (21:31)
[2024-08-25] MEDS: MAGNESIUM OXIDE 400 MG TAB PO ONE (21:31)
[2024-08-25] MEDS: ATORVASTATIN 20 MG TAB PO SCH (21:32)
[2024-08-25] MEDS: MULTIPLE VITAMIN TAB PO ONE (21:32)
[2024-08-26] VITALS (8 sets, daily range): BP systolic 129–134; BP diastolic 81–85; PULSE 59–69; RESP 18–22; TEMP 36.7; O2SAT 96–100
[2024-08-26 07:33] LABS: Anion Gap 9 (5-15); Carbon Dioxide 19 mmol/L (20-31); Chloride 116 mmol/L (98-107); Potassium 3.4 mmol/L (3.5-5.1); Sodium 144 mmol/L (136-145)
[2024-08-26 07:34] LABS: Calcium 9.9 mg/dL (8.7-10.4)
[2024-08-26 07:39] LABS: BUN/Creatinine Ratio 25.2 (10.0-20.0); Glucose 90 mg/dL (74-106)
[2024-08-26 07:43] LABS: Blood Urea Nitrogen 29 mg/dL (9-23)
[2024-08-26] MEDS: FOLIC ACID 1 MG TAB PO SCH (09:26)
[2024-08-26] MEDS: MAGNESIUM OXIDE 400 MG TAB PO SCH (09:26)
[2024-08-26] MEDS: THIAMINE HCL 100 MG TAB PO SCH (09:26)
[2024-08-26] MEDS: MULTIPLE VITAMIN TAB PO SCH (09:26)
--- NOTE | 2024-08-26 09:49 | DVHPN2 ---
Progress Note Date Seen: August 26, 2024 Medical Necessity Reason Pt with a Central, PICC or Fol: No Subjective Patient reports: No new complaints, Feels better Other Systems: Patient seen and examined by myself today in follow-up Objective vital signs Vital Sign Date Time Temp Pulse Resp B/P (MAP) Pulse Ox O2 Delivery O2 Flow Rate FiO2 08/26/24 08:01 Room Air* 0 21 08/26/24 05:59 98 08/26/24 05:00 98.0 69 20 134/81 (98) 98.0 Total Intake and Output 08/25/24 08/25/24 08/26/24 15:00 23:00 07:00 Intake Total 100 ml 1777.5 ml 640 ml Output Total 1200 ml Balance 100 ml 577.5 ml 640 ml medications Current Medications Medications Dose Ordered Sig/Kelly Route Start Time Stop Time Status Last Admin Dose Admin Atorvastatin Calcium 10 mg HS PO 08/25/24 22:00 08/25/24 21:32 10 MG Apixaban 5 mg BID PO 08/25/24 10:00 08/26/24 09:26 5 MG Sodium Chloride 10 ml Q8HR IV 08/25/24 06:00 08/26/24 05:22 10 ML Acetaminophen/ Hydrocodone Bitart 1 tab Q4HP PRN PO 08/24/24 23:45 08/25/24 14:12 1 TAB Ondansetron HCl 4 mg Q4HP PRN IV 08/24/24 23:45 Docusate Sodium 100 mg BIDPRN PRN PO 08/24/24 23:45 Multivitamins 1 tab DAILY PO 08/25/24 10:00 08/25/24 09:00 1 TAB Acetaminophen 650 mg Q6HP PRN PO 08/24/24 23:45 Nitroglycerin 0.4 mg Q5MINP PRN SL 08/24/24 23:45 Morphine Sulfate 2 mg Q30M PRN IV 08/24/24 23:45 08/25/24 03:46 2 MG Morphine Sulfate 2 mg Q4HPRN PRN IV 08/25/24 16:15 08/25/24 16:48 2 MG Albuterol 2.5 mg Q4HPRN PRN NEB 08/25/24 17:15 08/26/24 01:49 2.5 MG Ipratropium [place] 0.5 mg Q4HPRN PRN NEB 08/25/24 17:15 08/26/24 01:49 0.5 MG Folic Acid 1 mg DAILY PO 08/26/24 10:00 08/26/24 09:26 1 MG Multivitamins 1 tab DAILY PO 08/26/24 10:00 08/26/24 09:26 1 TAB Magnesium Oxide 400 mg DAILY PO 08/26/24 10:00 08/26/24 09:26 400 MG Thiamine HCl 100 mg DAILY PO 08/26/24 10:00 08/26/24 09:26 100 MG Examination: LUNGS:Normal, CVS:Normal, MSK:Normal laboratory and microbiology Laboratory Tests 08/26/24 05:58 08/25/24 04:29 Test 08/26/24 05:58 Range/Units Serum Glucose 90 74-106 mg/dL Microbiology Date/Time Source Procedure Growth Status 08/24/24 20:10 Blood Blood Culture - Preliminary NO GROWTH AFTER 24 HOURS OF INCUBATION. Resulted Problem List/Assessment/Plan Problem List/Assessment/Plan Acute kidney injury superimposed Chronic Kidney Disease secondary hemodynamic mediated Hypotension due to excessive blood pressure medication Alcohol intoxication Atrial fibrillation COPD Hypokalemia Recommendations Kidney function is improving Increasing urine output Strict I&Os kidney ultrasound reported within normal limit Hold blood pressure medicine I agree with IV fluid hydration KCL replacement We will continue to follow Plan discussed with: Patient My Orders My Orders Orders - ILIR PATEL MD Procedure Category Date Status Time Kidney US 08/25/24 Resulted 10:36 Potassium Effervesent PHA 08/26/24 Logged Tab (Klor-Con/Ef) 10:00 ILIR PATEL MD August 26, 2024 09:49
[2024-08-26] MEDS: POTASSIUM EFFERVESENT TAB 25 MEQ PO ONE (10:00)
--- NOTE | 2024-08-26 10:23 | DVHDS2 ---
Discharge Summary Date of Admission August 24, 2024 at 23:32 Date of Discharge: August 26, 2024 Labs/Diagnostic Data: Laboratory Results Test 08/26/24 05:58 08/25/24 11:50 08/25/24 04:29 08/25/24 02:20 Sodium Level 144 mmol/L (136-145) Potassium Level 3.4 mmol/L (3.5-5.1) Chloride Level 116 mmol/L (98-107) Carbon Dioxide Level 19 mmol/L (20-31) Anion Gap 9 (5-15) Blood Urea Nitrogen 29 mg/dL (9-23) Creatinine 1.15 mg/dL (0.700-1.30) Glomerular Filtration Rate Calc 69 mL/min (>90) BUN/Creatinine Ratio 25.2 (10.0-20.0) Serum Glucose 90 mg/dL (74-106) Calcium Level 9.9 mg/dL (8.7-10.4) Urine Creatinine 112.39 mg/dL (30.0-125.0) Urine Protein/Creatinine Ratio 0.40 Urine Sodium 20 mmol/L (40-220) Urine Total Protein 45.1 mg/dL (1-14) White Blood Count 8.5 10^3/uL (4.4-10.8) Red Blood Count 3.82 10^6/uL (4.5-5.90) Hemoglobin 12.2 g/dL (13.5-17.5) Hematocrit 36.0 % (41.0-53.0) Mean Corpuscular Volume 94.3 fL (80.0-100.0) Mean Corpuscular Hemoglobin 31.8 pg (28.0-32.0) Mean Corpuscular Hemoglobin Concent 33.8 g/dL (32.0-36.0) Red Cell Distribution Width 14.8 % (11.8-14.3) Platelet Count 153 10^3/uL (140-450) Mean Platelet Volume 7.6 fL (6.9-10.8) Neutrophils (%) (Auto) 61.9 % (37.0-80.0) Lymphocytes (%) (Auto) 24.7 % (10.0-50.0) Monocytes (%) (Auto) 9.2 % (0.0-12.0) Eosinophils (%) (Auto) 3.2 % (0.0-7.0) Basophils (%) (Auto) 1.0 % (0.0-2.0) Neutrophils # (Auto) 5.3 10 ^3/uL (1.6-8.6) Lymphocytes # (Auto) 2.1 10 ^3/uL (0.4-5.4) Monocytes # (Auto) 0.8 10 ^3/uL (0-1.3) Eosinophils # (Auto) 0.3 10 ^3/uL (0-0.8) Basophils # (Auto) 0.1 10 ^3/uL (0-0.2) Nucleated Red Blood Cells 0.1 % Phosphorus Level 5.0 mg/dL (2.4-5.1) Magnesium Level 1.8 mg/dL (1.6-2.6) Total Bilirubin 0.2 mg/dL (0.2-1.0) Aspartate Amino Transferase (AST) 14 U/L (13-40) Alanine Aminotransferase (ALT) 13 U/L (7-40) Alkaline Phosphatase 82 U/L (46-116) Total Protein 5.9 g/dL (5.7-8.2) Albumin 3.9 g/dL (3.2-4.8) Parathyroid Hormone (Intact) 51.8 pg/mL (18.4-80.1) Urine Color Yellow (Yellow) Urine Clarity Clear (Clear) Urine pH 6.5 (5.0-9.0) Urine Specific [place] 1.016 (1.001-1.035) Urine Protein Trace (Negative) Urine Ketones Negative (Negative) Urine Blood Negative /uL (Negative) Urine Nitrite Negative (Negative) Urine Bilirubin Negative (Negative) Urine Urobilinogen Normal mg/dL (Negative) Urine Leukocyte Esterase Negative /uL (Negative) Urine RBC None seen /hpf (0 - 3) Urine Microscopic WBC 2 /HPF (0-3) Urine Squamous Epithelial Cells Few /hpf (<5) Urine Bacteria None seen /hpf (None Seen) Urine Hyaline Casts Few /lpf (0 - 2) Urine Mucus Few (None Seen) Urine Glucose Normal mg/dL (Normal) Urine Opiates Screen Neg (NEGATIVE) Urine Fentanyl Screen Neg (NEGATIVE) Urine Barbiturates Screen Neg (NEGATIVE) Urine Phencyclidine Screen Neg (NEGATIVE) Urine Amphetamines Screen Neg (NEGATIVE) Urine Benzodiazepines Screen Neg (NEGATIVE) Urine Cocaine Screen Neg (NEGATIVE) Urine Cannabinoids Screen Pos (NEGATIVE) Test 08/24/24 21:10 08/24/24 20:10 08/24/24 19:54 Troponin I High Sensitivity 16 ng/L (</=54) Lactic Acid Level 1.6 mmol/L (0.4-2.0) C-Reactive Protein High Sensitivity 0.19 mg/dL (<1.0) B-Type Natriuretic Peptide 100.49 pg/mL (0-100) Plasma/Serum Blood Alcohol 123.0 mg/dL (<10) POC Glucose 106 mg/dl (70-106) Other Laboratory Tests 08/26/24 05:58 08/25/24 04:29 Brief Hx & Hospital Course: Final diagnoses: Acute kidney injury hemodynamically mediated Hypovolemic shock Alcohol intoxication Dehydration Persistent atrial fibrillation on Eliquis Alcohol dependence Cannabinoids dependence Nicotine dependence Advanced COPD Hypertension Acute on chronic kidney disease Obesity Chronic low back pain Hypokalemia 68-year-old male who was admitted because of alcohol intoxication and low blood pressure and acute kidney injury He was resuscitated with IV fluids and recovered quickly His kidney function is back to normal in his blood pressure is better now He is feeling better and wants to go home Resume the home medications Follow up with his primary care physician as soon as possible Condition at Discharge: Stable Final Diagnosis/Problems List cute kidney injury hemodynamically mediated Hypovolemic shock Alcohol intoxication Dehydration Persistent atrial fibrillation on Eliquis Alcohol dependence Cannabinoids dependence Nicotine dependence Advanced COPD Hypertension Acute on chronic kidney disease Obesity Chronic low back pain Hypokalemia Discharge Disposition: Home SNF Discharge Will this Physician continue t: No Discharge Statement: "Patient was advised to return to the ER or call 911 if any headaches, dizziness, shortness of breath, chest pain, abdominal pain, bleeding, fevers, or worsening of medical condition. Patient was counseled about treatment plan, medications, possible side effects, patient�verbalized understanding. All questions were answered to the best of my ability. This discharge took greater then 30 minutes in planning, reviewing documentation, counseling the patient, and discussing with other team members." ASSESSMENT ASSESSMENT Assessment Date of Service: August 26, 2024 Billing Provider: NICOLLE PANDA MD Common Visit Codes: NOT BILLABLE NICOLLE PANDA MD August 26, 2024 10:23
--- NOTE | 2024-08-26 23:44 | DVHPN2 ---
Progress Note - Dictate Date Seen: August 26, 2024 Medical Necessity Reason Pt with a Central, PICC or Fol: No Subjective Patient was seen and evaluated in follow up. No overnight events. Patient reports feeling better today. Patient denies any cardiac symptoms. Patient is cardiac stable for discharge. Telemetry reviewed. vital signs Vital Sign Date Time Temp Pulse Resp B/P (MAP) Pulse Ox O2 Delivery O2 Flow Rate FiO2 08/26/24 11:04 36.7 08/26/24 10:03 96 Room Air 0.0 08/26/24 10:03 21 08/26/24 09:00 65 18 129/85 (100) Total Intake and Output 08/25/24 08/25/24 08/26/24 15:00 23:00 07:00 Intake Total 100 ml 1777.5 ml 640 ml Output Total 1200 ml Balance 100 ml 577.5 ml 640 ml objective GENERAL: Alert and oriented x 3. No acute distress. Obese. EYES: PERRL, EOMI. Anicteric. HENT: Moist mucous membranes. LUNGS: Clear to auscultation bilaterally. CARDIOVASCULAR: Irregular rate and rhythm. ABDOMEN: Soft, nontender and nondistended. EXTREMITIES: No edema. NEUROLOGIC: No focal neurological deficits. SKIN: Warm, dry. laboratory and microbiology Laboratory Tests 08/26/24 05:58 08/25/24 04:29 Test 08/26/24 05:58 Range/Units Serum Glucose 90 74-106 mg/dL Problem List Hypovolemic shock 2/2 alcohol intoxication/dehydration. Presence of permanent pacemaker ([employer]). Persistent atrial fibrillation, stage III, on Eliquis. Alcohol/nicotine/cannabinoid dependence. End-stage COPD. Hypertension. GEMMA on CKD. Obesity. Assessment/Plan Continued all current supportive medical care0 IV fluids with a banana bag. Morphine and [place] for pain management. Eliquis. Lipitor. Additional plan as per the hospital course. Plan discussed with: Patient JYOTSNA SCOTT MD August 26, 2024 12:31
== END 2024-08-26 12:05 | disposition home or self-care (01) | DRG 640 ==
LOC: ER 19:21 → OVERFLOW 23:32 → TELE-CENTR 08-25 05:25
PROVIDERS: ADMIT Internal Medicine Geriatric Medicine; ATTEND Internal Medicine Geriatric Medicine
DX: E86.0 Dehydration (principal); N17.0 Acute kidney failure with tubular necrosis; R57.1 Hypovolemic shock; I48.19 Other persistent atrial fibrillation; F10.229 Alcohol dependence with intoxication, unspecified; N18.9 Chronic kidney disease, unspecified; J44.9 Chronic obstructive pulmonary disease, unspecified; E66.9 Obesity, unspecified; Z68.30 Body mass index [BMI] 30.0-30.9, adult; I12.9 Hypertensive chronic kidney disease with stage 1 through stage 4 chronic kidney disease, or unspecified chronic kidney disease; M54.50 Low back pain, unspecified; N40.0 Benign prostatic hyperplasia without lower urinary tract symptoms; F17.210 Nicotine dependence, cigarettes, uncomplicated; G89.29 Other chronic pain; E87.6 Hypokalemia; E78.5 Hyperlipidemia, unspecified; Z95.0 Presence of cardiac pacemaker; Z82.49 Family history of ischemic heart disease and other diseases of the circulatory system; Z82.3 Family history of stroke; Z79.01 Long term (current) use of anticoagulants; Y90.6 Blood alcohol level of 120-199 mg/100 ml
CPT/HCPCS: 36415; 71045; 76775; 80048; 80053; 80307; 80320; 81001; 82570; 82962; 83605; 83735; 83880; 83970; 84100; 84156; 84300; 84484; 85025; 86141; 87040; 93005; 94640; 96360; 96361; 99291; G0378; J7060